=== PATIENT | female | born 1990 | race Caucasian/White ===

== ENCOUNTER 2016-08-17 22:32 | Emergency (ER) | payer MEDICAID ==
[2016-08-17 22:32] VITALS: BMI 34.5
[2016-08-17 23:04] VITALS: BP 123/80; PULSE 97; RESP 16; TEMP 97.9; O2SAT 98
[2016-08-17] MEDS ORDERED: Oxycodone/Acetaminophen 5/325 mg Tab PO STA (23:18)
--- NOTE | 2016-08-17 23:18 | ED PDOC ---
HPI: Abdomen Time Seen by Provider: 08/17/16 23:13 Chief Complaint (Nursing): Abdominal Pain Chief Complaint (Provider): Abdominal Pain History Per: Patient Additional Complaint(s): 25 yo female, no PMH, presents to ED with complaints of LLQ abdominal pain that developed yesterday and vaginal bleeding. Pt is s/p on 08.05.16. Pt . Pt denies any fever or chills, no nausea, vomiting, or diarrhea. Last BM was at 1900 Past Medical History Reviewed: Nursing Documentation, Vital Signs Vital Signs: Last Vital Signs Temp 97.9 F 08/17/16 23:00 Pulse 97 H 08/17/16 23:00 Resp 16 08/17/16 23:00 BP 123/80 08/17/16 23:00 Pulse Ox 98 08/17/16 23:19 - Medical History PMH: No Chronic Diseases - Surgical History Surgical History: Appendectomy - Family History Family History: States: Unknown Family Hx - Living Arrangements Living Arrangements: With Family - Social History Current smoker - smoking cessation education provided: No Alcohol: None Drugs: Denies - Immunization History Hx Tetanus Toxoid Vaccination: No Hx Influenza Vaccination: No Hx Pneumococcal Vaccination: No - Home Medications Home Medications: Ambulatory Orders Medication Instructions Recorded Vit No.126/Iron/FA 1 tab PO DAILY 04/11/16 [Classic Tablet] Ibuprofen [Motrin Tab] 600 mg PO Q6 PRN #30 tab 08/08/16 Docusate [Colace] 100 mg PO DAILY #10 cap 08/18/16 Ibuprofen [Motrin] 600 mg PO Q6 #20 tab 08/18/16 Nitrofurantoin Macrocrystals 100 mg PO BID #10 cap 08/18/16 [Macrobid] oxyCODONE/Acetaminophen [Percocet 1 ea PO Q6 PRN #10 tab 08/18/16 5/325 mg Tab] - Allergies Allergies/Adverse Reactions: Allergies Allergy/AdvReac Type Severity Reaction Status Date / Time morphine Allergy RASH Verified 08/17/16 23:00 Review of Systems ROS Statement: Except As Marked, All Systems Reviewed And Found Negative Gastrointestinal: Positive for: Abdominal Pain Physical Exam - Reviewed Nursing Documentation Reviewed: Yes Vital Signs Reviewed: Yes - Physical Exam Appears: Positive for: Well, Non-toxic, No Acute Distress Head Exam: Positive for: ATRAUMATIC, NORMAL INSPECTION, NORMOCEPHALIC Skin: Positive for: Normal Color, Warm, DRY Eye Exam: Positive for: EOMI, Normal appearance, PERRL ENT: Positive for: Normal ENT Inspection Neck: Positive for: Normal, Painless ROM Cardiovascular/Chest: Positive for: Regular Rate, Rhythm Respiratory: Positive for: CNT, Normal Breath Sounds Gastrointestinal/Abdominal: Positive for: Normal Exam, Bowel Sounds, Soft, Tenderness (LLQ) Back: Positive for: Normal Inspection Extremity: Positive for: Normal ROM Neurologic/Psych: Positive for: Alert, Oriented - Laboratory Results Result Diagrams: 08/18/16 00:30 08/18/16 00:30 - ECG O2 Sat by Pulse Oximetry: 98 Medical Decision Making Medical Decision Making: Pt medicated with Percocet for pain. Diagnostics ordered CBC with WBC 11.5 Hgb 11.2 COMP WNL UA with WBC 14 US resulted: 1. Thickened endometrium with fluid. Clinical correlation is needed. 2. Incidental/non-acute findings are described above. Pt on re-eval rapports pain continues. LLQ tenderness. CT scan ordered IMPRESSION: 1. Retroperitoneal fluid density lesion/collection. DDX: Cyst, hematoma, seroma , abscess, necrotic lymph node, necrotic neoplasm. 2. Abdominal collection. DDX: Hematoma, seroma, abscess. 3. Incidental/non-acute findings are described above. Case discussed with DIRECTOR OF PROVIDER RELATIONS on-call, Dr. Templeton, who advised CT findings at this time are not abnormal s/p . Pt stable for discharge at this time, follow up in office. Disposition - Clinical Impression Clinical Impression: UTI (urinary tract infection), Abdominal pain - Patient ED Disposition Is Patient to be Admitted: No - Disposition Disposition: Routine/Home Disposition Time: 04:58 Condition: GOOD Prescriptions: Docusate [Colace] 100 mg PO DAILY #10 cap Nitrofurantoin Macrocrystals [Macrobid] 100 mg PO BID #10 cap Ibuprofen [Motrin] 600 mg PO Q6 #20 tab oxyCODONE/Acetaminophen [Percocet 5/325 mg Tab] 1 ea PO Q6 PRN #10 tab PRN Reason: Pain, Severe (8-10) Instructions: Urinary Tract Infection in Women (ED), Acute Abdominal Pain (ED) - POA Present On Arrival: None
[2016-08-17] MEDS ORDERED: Oxycodone/Acetaminophen 5/325 mg Tab ONE (23:44)
--- NOTE | 2016-08-18 00:45 | US ---
EXAM: US Pelvis Complete, Transabdominal. CLINICAL HISTORY: 25 years old, female; Pain and signs and symptoms; Menstruation abnormalities; Excessive menstruation; Other: Post preg bleeding; Pelvic pain; Prior surgery; Surgery date: <1 month; Surgery type: ; Additional info: Pain and heavy bleeding S/P c section TECHNIQUE: Real-time transabdominal pelvic ultrasound (complete) with image documentation. COMPARISON: No relevant prior studies available. FINDINGS: Uterus/cervix: Uterus measures 11.4 x 7.6 x 7.5 cm in size. No myometrial mass. Endometrium: 1.9 cm in thickness. Small fluid within canal. No internal vascularity. Right ovary: 3.1 x 3.0 x 3.5 cm in size. No mass. Normal flow. Left ovary: Not visualized. Free fluid: No significant free fluid. Bladder: Unremarkable as visualized. IMPRESSION: 1. Thickened endometrium with fluid. Clinical correlation is needed. 2. Incidental/non-acute findings are described above.
[2016-08-18 00:47] LABS: BASO % 0.4 % (0.0-2.0); EOS # 0.3 K/uL (0.0-0.7); EOS % 2.6 % (0.0-4.0); HEMATOCRIT 35.9 % (34.0-47.0); LYMPH # 3.4 K/uL (1.0-4.3); LYMPH % 29.8 % (20.0-40.0); MEAN CELL VOLUME 89.3 fl (81.0-99.0); MEAN CORPUSCULAR HEMOGLOBIN 27.9 pg (27.0-31.0); MEAN CORPUSCULAR HGB CONC 31.2 g/dL (33.0-37.0); MEAN PLATELET VOLUME 7.8 fl (7.2-11.7); MONO # 0.7 K/uL (0.0-0.8); MONO % 5.9 % (0.0-10.0); NEUT % 61.3 % (50.0-75.0); NRBC % 0.1 % (0.0-0.0); RED CELL DISTRIBUTION WIDTH 15.2 % (11.5-14.5); WHITE BLOOD COUNT 11.5 K/uL (4.8-10.8)
[2016-08-18 00:53] LABS: RBC URINE 7 /hpf (0-3); URINE BILIRUBIN NEGATIVE (NEGATIVE); URINE BLOOD MODERATE (NEGATIVE); URINE COLOR YELLOW (YELLOW); URINE GLUCOSE (UA) NEG (Normal); URINE KETONE NEGATIVE (NEGATIVE); URINE LEUKOCYTE ESTERASE SMALL Leu/uL (Negative); URINE PROTEIN NEGATIVE (NEGATIVE); URINE UROBILINOGEN 0.2-1.0 mg/dL (0.2-1.0); WBC URINE 14 /hpf (0-5)
[2016-08-18 01:02] LABS: ALB/GLOB RATIO 1.1 (1.0-2.1); ALKALINE PHOSPHATASE 103 U/L (38-126); ALT/SGPT 37 U/L (9-52); AST/SGOT 31 U/L (14-36); BILIRUBIN,TOTAL 0.3 mg/dl (0.2-1.3); BLOOD UREA NITROGEN 12 mg/dl (7-17); CALCIUM 9.4 mg/dL (8.4-10.2); CARBON DIOXIDE 26 mmol/L (22-30); CHLORIDE 103 mmol/L (98-107); GFR AFRICAN-AMERICAN > 60; GLUCOSE,RANDOM 82 mg/dL (65-105); POTASSIUM 3.8 MMOL/L (3.6-5.0); SODIUM 145 mmol/l (132-148); TOTAL PROTEIN 7.5 G/DL (6.3-8.2)
[2016-08-18] MEDS ORDERED: Iohexol 240 (50 ml) PO ONE (01:37)
[2016-08-18] MEDS ORDERED: Iohexol 240 (50 ml) ONE (01:49)
[2016-08-18] MEDS ORDERED: Iohexol 300 50 ML ONE (03:22)
[2016-08-18] MEDS ORDERED: Sodium Chloride 0.9% 50 ML IV ONE (03:22)
--- NOTE | 2016-08-18 04:05 | CT ---
EXAM: CT Abdomen and Pelvis With Intravenous Contrast. CLINICAL HISTORY: 25 years old, female; Pain; Abdominal pain; Localized; Left lower quadrant (llq); Prior surgery; Surgery date: 6+ months; Surgery type: Appendectomy. 2 weeks ago; Additional info: Severe llq pain TECHNIQUE: Axial computed tomography images of the abdomen and pelvis with intravenous contrast. This CT exam was performed using one or more of the following dose reduction techniques: automated exposure control, adjustment of the mA and/or kV according to patient size, and/or use of iterative reconstruction technique. Coronal and sagittal reformatted images were created and reviewed. COMPARISON: US - PELVIS ULTRASOUND 08/18/2016 12:03:59 AM FINDINGS: Limitations: Lack of intravenous contrast. Lower thorax: Minimal atelectasis. ABDOMEN: Liver: Unremarkable. No mass. Gallbladder and bile ducts: No calcified stones. No ductal dilation. Pancreas: No ductal dilation. No mass. Spleen: No splenomegaly. Adrenals: No mass. Kidneys and ureters: No renal calculi. Minimal pelvocaliectasis of kidneys. Stomach and bowel: No definite mural thickening. No obstruction. Appendix: Appendectomy. PELVIS: Bladder: Unremarkable. Reproductive: Enlarged uterus. ABDOMEN and PELVIS: Intraperitoneal space: No significant fluid collection. No free air. Retroperitoneal space: 3.5 x 1.7 x 4.2 cm amorphous fluid density lesion/collection along retroperitoneum at level of bifurcation. Bones/joints: No acute fracture. Soft tissues: 1.7 x 4.2 x 1.5 cm fluid collection midline anterior pelvic wall. Mild stranding/minimal air within adjacent fat. Vasculature: Unremarkable. No abdominal aortic aneurysm. Lymph nodes: No pathologically enlarged lymph nodes. IMPRESSION: 1. Retroperitoneal fluid density lesion/collection. DDX: Cyst, hematoma, seroma, abscess, necrotic lymph node, necrotic neoplasm. 2. Abdominal collection. DDX: Hematoma, seroma, abscess. 3. Incidental/non-acute findings are described above.
== END 2016-08-18 05:29 | disposition home or self-care (01) ==
LOC: H.ER 22:32
DX: N39.0 Urinary tract infection, site not specified (principal); R10.32 Left lower quadrant pain

== ENCOUNTER 2017-01-11 13:07 | Inpatient (IN) | payer MEDICAID, OTHER ==
[2017-01-11 13:07] VITALS: BMI 34.5
[2017-01-11] MEDS ORDERED: Sodium Chloride 0.9% 1,000 ML IV STA ×2 (13:40→15:58)
--- NOTE | 2017-01-11 13:50 | ED PDOC ---
HPI: Headache Time Seen by Provider: 01/11/17 13:18 Chief Complaint (Nursing): Headache Chief Complaint (Provider): Headache History Per: Patient History/Exam Limitations: no limitations Onset/Duration Of Symptoms: Days (x 3) Current Symptoms Are (Timing): Still Present Associated Symptoms: Photophobia, Vomiting Additional Complaint(s): Barbara is a 26 y/o female who presents to the ED for complaints of right-sided headache associated with generalized weakness, dizziness, and photophobia, ongoing for 3 days. Patient also had 1 episode of vomiting. Took Tylenol without improvement in symptoms. Denies any associated trauma, focal weakness, numbness, tingling, fever, or neck stiffness. PMD: Unknown Past Medical History Reviewed: Historical Data, Nursing Documentation, Vital Signs Vital Signs: Last Vital Signs Temp 98.2 F 01/11/17 13:15 Pulse 86 01/11/17 13:15 Resp 18 01/11/17 13:15 BP 124/83 01/11/17 13:15 Pulse Ox 100 01/11/17 13:15 - Medical History PMH: No Chronic Diseases - Surgical History Surgical History: Appendectomy - Family History Family History: States: Unknown Family Hx - Social History Current smoker - smoking cessation education provided: No Alcohol: None Drugs: Denies - Immunization History Hx Tetanus Toxoid Vaccination: No Hx Influenza Vaccination: No Hx Pneumococcal Vaccination: No - Home Medications Home Medications: Ambulatory Orders Medication Instructions Recorded Vit No.126/Iron/Folic 1 tab PO DAILY 04/11/16 [Classic Tablet] Ibuprofen [Motrin Tab] 600 mg PO Q6 PRN #30 tab 08/08/16 Docusate [Colace] 100 mg PO DAILY #10 cap 08/18/16 Ibuprofen [Motrin] 600 mg PO Q6 #20 tab 08/18/16 Nitrofurantoin Macrocrystals 100 mg PO BID #10 cap 08/18/16 [Macrobid] oxyCODONE/Acetaminophen [Percocet 1 ea PO Q6 PRN #10 tab 08/18/16 5/325 mg Tab] - Allergies Allergies/Adverse Reactions: Allergies Allergy/AdvReac Type Severity Reaction Status Date / Time morphine Allergy RASH Verified 08/17/16 23:00 Review of Systems ROS Statement: Except As Marked, All Systems Reviewed And Found Negative Constitutional: Positive for: Weakness (generalized). Negative for: Fever Musculoskeletal: Negative for: Neck Pain (and stiffness) Neurological: Positive for: Headache (Right-sided), Dizziness, Other ( Photophobia). Negative for: Weakness (focal), Numbness (and tingling) Physical Exam - Reviewed Nursing Documentation Reviewed: Yes Vital Signs Reviewed: Yes - Physical Exam Appears: Positive for: Non-toxic, In Acute Distress (Moderate painful distress) Head Exam: Positive for: ATRAUMATIC (No tenderness of the temporal area), NORMOCEPHALIC Skin: Positive for: Normal Color, Warm, Dry Eye Exam: Positive for: Normal appearance, EOMI, PERRL, Nystagmus (Horizontal) Neck: Positive for: Normal, Painless ROM (Full ROM), Supple Cardiovascular/Chest: Positive for: Regular Rate, Rhythm. Negative for: Murmur Respiratory: Positive for: Normal Breath Sounds. Negative for: Accessory Muscle Use, Respiratory Distress Gastrointestinal/Abdominal: Positive for: Normal Exam, Soft. Negative for: Tenderness Back: Positive for: Normal Inspection. Negative for: Vertebral Tenderness Extremity: Positive for: Normal ROM. Negative for: Deformity Neurologic/Psych: Positive for: Alert, marketing coordinator II-XII (Intact), Oriented, Cerebellar Tests (FTN intact). Negative for: Motor/Sensory Deficits (no focal defecits), Aphasia, Facial Droop - Laboratory Results Result Diagrams: 01/11/17 13:45 01/11/17 13:45 - ECG O2 Sat by Pulse Oximetry: 100 (RA) Pulse Ox Interpretation: Normal - Progress Re-evaluation Time: 17:44 Condition: Improving,but remains with symptoms - Physician Consult Information Time Consulting Physican Contacted: 17:51 Physician Contacted: Gilbert Kim Outcome Of Conversation: Recommends MgSO4 2 g, Decadron 10 mg, Depakote 500 mg IV and MRI/MRA head and neck without contrast. Medical Decision Making Medical Decision Making: Time: 13:39 Impression: Headache Initial Plan: --CMP --CBC w/ differential --Urine test --Urine dipstick --Urinalysis --POC blood glucose --NS IV 1000 ml at 1000 mls/hr --Benadryl 25 mg IM --Promethazine 25 mg IM --Pending CT Head w/o contrast Time: 15:20 CT Head w/o contrast: FINDINGS: HEMORRHAGE: No intracranial hemorrhage. BRAIN: No mass effect or edema. No atrophy or chronic microvascular ischemic changes. VENTRICLES: Unremarkable. No hydrocephalus. CALVARIUM: Unremarkable. PARANASAL SINUSES: Unremarkable as visualized. No significant inflammatory changes. MASTOID AIR CELLS: Unremarkable as visualized. No inflammatory changes. OTHER FINDINGS: None. IMPRESSION: Normal CT of the Head. Time: 15:32 --Patient given 100 mg Macrobid PO Time: 15:58 --NS IV 1000 ml at 1000 mls/hr Time: 17:38 -- Patient ambulating without difficulty. Awake, alert and oriented x3. No new complaints. Is stable for discharge home. Scribe Attestation: Documented by Shea Castaneda and Marianne Johnson acting as a scribe for Erika Zelaya MD Provider Scribe Attestation: All medical record entries made by the Scribe were at my direction and personally dictated by me. I have reviewed the chart and agree that the record accurately reflects my personal performance of the history, physical exam, medical decision making, and the department course for this patient. I have also personally directed, reviewed, and agree with the discharge instructions and disposition. Disposition - Clinical Impression Clinical Impression: Intractable migraine, Vertigo - Patient ED Disposition Is Patient to be Admitted: Yes - Disposition Disposition Time: 18:00 Condition: STABLE Forms: [employer] (Setswana) - Pt Status Changed To: Hospital Disposition Of: Observation - POA Present On Arrival: None
[2017-01-11] MEDS: DiphenhydrAMINE 50 mg/ml Inj IM STA ×2 (13:53→14:01)
[2017-01-11 13:55] LABS: BASO % 0.5 % (0.0-2.0); EOS # 0.1 K/uL (0.0-0.7); EOS % 1.5 % (0.0-4.0); LYMPH # 2.3 K/uL (1.0-4.3); LYMPH % 37.3 % (20.0-40.0); MEAN CORPUSCULAR HEMOGLOBIN 28.1 pg (27.0-31.0); MEAN CORPUSCULAR HGB CONC 32.8 g/dL (33.0-37.0); MEAN PLATELET VOLUME 9.2 fl (7.2-11.7); MONO # 0.4 K/uL (0.0-0.8); MONO % 7.3 % (0.0-10.0); NEUT # 3.3 K/uL (1.8-7.0); NEUT % 53.4 % (50.0-75.0); NRBC % 0.1 % (0.0-0.0); RBC 4.62 Mil/uL (3.80-5.20); RED CELL DISTRIBUTION WIDTH 15.4 % (11.5-14.5); WHITE BLOOD COUNT 6.1 K/uL (4.8-10.8)
[2017-01-11 14:13] LABS: SQUAMOUS EPITHIAL 5 /hpf (0-5); URINE BACTERIA RARE (<OCC); URINE BILIRUBIN NEGATIVE (NEGATIVE); URINE BLOOD SMALL (NEGATIVE); URINE CLARITY SLIGHTY-CLOUDY (Clear); URINE COLOR YELLOW (YELLOW); URINE GLUCOSE (UA) NEG (Normal); URINE LEUKOCYTE ESTERASE NEG Leu/uL (Negative); URINE NITRATE POSITIVE (NEGATIVE); URINE PROTEIN NEGATIVE (NEGATIVE); URINE UROBILINOGEN 0.2-1.0 mg/dL (0.2-1.0)
[2017-01-11 14:18] LABS: MEAN CELL VOLUME 85.9 fl (81.0-99.0)
[2017-01-11 14:19] LABS: ALB/GLOB RATIO 1.4 (1.0-2.1); ALBUMIN 4.6 g/dL (3.5-5.0); ALT/SGPT 47 U/L (9-52); AST/SGOT 32 U/L (14-36); BLOOD UREA NITROGEN 12 mg/dl (7-17); CALCIUM 9.9 mg/dL (8.4-10.2); GFR AFRICAN-AMERICAN > 60; GFR NON-AFRICAN AMERICAN > 60
--- NOTE | 2017-01-11 15:35 | CT ---
PROCEDURE: CT HEAD WITHOUT CONTRAST. HISTORY: R sided CARMONA COMPARISON: None available. TECHNIQUE: Axial computed tomography images were obtained through the head/brain without intravenous contrast. Radiation dose: Total exam DLP = mGy-cm. This CT exam was performed using one or more of the following dose reduction techniques: Automated exposure control, adjustment of the mA and/or kV according to patient size, and/or use of iterative reconstruction technique. FINDINGS: HEMORRHAGE: No intracranial hemorrhage. BRAIN: No mass effect or edema. No atrophy or chronic microvascular ischemic changes. VENTRICLES: Unremarkable. No hydrocephalus. CALVARIUM: Unremarkable. PARANASAL SINUSES: Unremarkable as visualized. No significant inflammatory changes. MASTOID AIR CELLS: Unremarkable as visualized. No inflammatory changes. OTHER FINDINGS: None. IMPRESSION: Normal CT of the Head.
[2017-01-11] MEDS ORDERED: Dexamethasone 10 MG in Sodium Chloride 0.9% 50 ML IVPB ONE (18:00)
[2017-01-11] MEDS ORDERED: Valproate 500 MG in Sodium Chloride 0.9% 100 ML IVPB ONE (18:00)
[2017-01-11] MEDS ORDERED: Magnesium Sulfate 2 gm/50 ml 2 GM/50 ML BAG IVPB ONE (18:00)
[2017-01-11] MEDS ORDERED: Valproate Sodium 500 mg Inj ONE (18:10)
[2017-01-11] MEDS ORDERED: Magnesium Sulfate 2 gm/50 ml 2 GM/50 ML BAG ONE (18:10)
--- NOTE | 2017-01-11 21:47 | CARD ---
APPROVED REPORT EKG Measurement Heart [id number] <Conclusion> Normal sinus rhythm Normal ECG
[2017-01-11] MEDS: Apap-Butalbital-Caffeine 325-50-40mg Tab PO PRN (23:31)
[2017-01-12] MEDS: Apap-Butalbital-Caffeine 325-50-40mg Tab PO PRN ×2 (05:32→13:35)
[2017-01-12 06:57] LABS: ALB/GLOB RATIO 1.3 (1.0-2.1); ALBUMIN 4.4 g/dL (3.5-5.0); ALT/SGPT 36 U/L (9-52); AST/SGOT 25 U/L (14-36); BLOOD UREA NITROGEN 8 mg/dl (7-17); CALCIUM 9.7 mg/dL (8.4-10.2); GFR AFRICAN-AMERICAN > 60; GFR NON-AFRICAN AMERICAN > 60; HDL CHOLESTEROL 41 MG/DL (30-70)
[2017-01-12 07:03] LABS: BASO % 0.1 % (0.0-2.0); HEMOGLOBIN 13.4 g/dL (12.0-16.0); LYMPH # 1.1 K/uL (1.0-4.3); LYMPH % 20.4 % (20.0-40.0); MEAN CORPUSCULAR HGB CONC 33.7 g/dL (33.0-37.0); MEAN PLATELET VOLUME 10.1 fl (7.2-11.7); MONO # 0.1 K/uL (0.0-0.8); MONO % 1.9 % (0.0-10.0); NEUT # 4.3 K/uL (1.8-7.0); NEUT % 77.6 % (50.0-75.0); NRBC % 0.2 % (0.0-0.0); RBC 4.61 Mil/uL (3.80-5.20); RED CELL DISTRIBUTION WIDTH 15.8 % (11.5-14.5); WHITE BLOOD COUNT 5.6 K/uL (4.8-10.8)
[2017-01-12 07:08] LABS: LDL CHOLESTEROL 108 mg/dL (0-129)
--- NOTE | 2017-01-12 08:12 | RAD ---
HISTORY: Admission COMPARISON: 01/11/2017. FINDINGS: LUNGS: No active pulmonary disease. PLEURA: No significant pleural effusion identified, no pneumothorax apparent. CARDIOVASCULAR: Normal. OSSEOUS STRUCTURES: No significant abnormalities. VISUALIZED UPPER ABDOMEN: Normal. OTHER FINDINGS: None. IMPRESSION: No active disease. No significant interval change compared to the prior examination(s).
[2017-01-12] MEDS: Enoxaparin 40 mg Syringe SC SCH (08:52)
--- NOTE | 2017-01-12 10:21 | HP ---
CHIEF COMPLAINT: Headache. HISTORY OF PRESENT ILLNESS: This is a 26-year-old female with known case of questionable migraine who was having right-sided headache associated with generalized weakness, dizziness, and photophobia, so the patient was brought to emergency room and was admitted for further management. REVIEW OF SYSTEMS: Positive for headache, dizziness, and photophobia. Review of systems otherwise negative for chest pain, shortness of breath, nausea, vomiting, diarrhea, constipation, any new joint or extremity pain. Review of systems of all other organ system is unremarkable. PAST MEDICAL HISTORY: Negative for any chronic illness other than migraine. PAST SURGICAL HISTORY: Remarkable for appendectomy. PERSONAL HISTORY: The patient is currently nonsmoker and nondrinker. No substance abuse. MEDICATIONS: The patient is on vitamin, Motrin, Colace, and Macrobid. ALLERGIES: THE PATIENT IS NOT ALLERGIC TO ANY MEDICATION OTHER THAN MORPHINE. PHYSICAL EXAMINATION: GENERAL: The patient is well-built and well-nourished, overweight, 26-year-old female in no acute distress. VITAL SIGNS: Temperature is 98.1, pulse 64, respirations 20, and blood pressure 99/67. No orthostatic changes. Saturation is 97%. HEENT: Pupils are reacting to light. Normocephalic and atraumatic scalp. NECK: No JVD. No thyromegaly. No lymphadenopathy. No nystagmus. HEART: S1 and S2 normal and regular. No significant murmur, gallop, or rub is noted. LUNGS: Shows good bilateral air exchange. No rales or rhonchi. ABDOMEN: Soft and nontender. No organomegaly noted. Bowel sounds are present. EXTREMITIES: Some edema. No calf swelling. No tenderness. No acute ischemia. CENTRAL NERVOUS SYSTEM: Essentially unchanged. There is no sign of any acute gross, focal, motor or sensory neurological deficit. DIAGNOSTIC DATA: Available diagnostic data reviewed. WBC 5.6, hemoglobin 17.4, hematocrit 39.7, and platelet 247. Sodium 151, potassium 4.2, chloride 107, bicarbonate 23, BUN 8, and creatinine 0.6. SMA-12 is unremarkable. Urinalysis shows positive nitrite. CAT scan of head is unremarkable. Chest x-ray is clear. EKG does not show any acute ST-T changes. IMPRESSION: Questionable atypical migraine, rule out cerebrovascular accident. PLAN: As ordered. Case and plan discussed with the patient. Bora Stern MD [facility] # [id number]
[2017-01-12] MEDS ORDERED: Dexamethasone 10 MG in Sodium Chloride 0.9% 50 ML IVPB ONE (17:00)
--- NOTE | 2017-01-12 18:36 | MRI ---
PROCEDURE: MRI BRAIN WITHOUT CONTRAST HISTORY: Intractable CARMONA COMPARISON: Comparison is made to the previous CT dated 01/11/2017 TECHNIQUE: Multiplanar, multisequence MR images of the brain were obtained without intravenous contrast enhancement. FINDINGS: HEMORRHAGE: None DWI: No evidence of an acute or early subacute infarction. BRAIN PARENCHYMA: No mass effect or edema. No atrophy or chronic microvascular ischemic changes. VENTRICLES: Unremarkable. No hydrocephalus. CRANIUM: Unremarkable. ORBITS: Grossly unremarkable. PARANASAL SINUSES/MASTOIDS: Clear VASCULAR SYSTEM: Skull base flow voids intact. OTHER FINDINGS: None. IMPRESSION: No MRI evidence of acute pathology in the brain. No evidence of mass lesion mass effect or midline shift.
--- NOTE | 2017-01-12 18:41 | MRI ---
PROCEDURE: Magnetic Resonance Angiography Brain HISTORY: Intractable CARMONA/vertigo COMPARISON: None available. TECHNIQUE: 3D time of flight MR angiography of the intracranial arteries was performed. Rotating maximum intensity projection images were generated. FINDINGS: INTERNAL CEREBRAL ARTERIES: Unremarkable. The skull base, petrous, cavernous and supraclinoid segments are bilaterally widely patient. ANTERIOR CEREBRAL ARTERIES: Unremarkable. A1 and A2 segments are widely patent. Smaller distal branches unremarkable, as visualized. MIDDLE CEREBRAL ARTERIES: Unremarkable. M1 and M2 segments are widely patent. Perisylvian branches grossly symmetric. POSTERIOR CIRCULATION: Basilar Artery: Unremarkable. Distal Vertebral Arteries: Unremarkable. Posterior Cerebral Arteries: Unremarkable. Posterior Inferior Cerebellar Arteries: Unremarkable. ANEURYSM/ VASCULAR MALFORMATIONS: None. OTHER FINDINGS: None. IMPRESSION: Unremarkable MR angiography of the brain.
--- NOTE | 2017-01-12 18:44 | MRI ---
PROCEDURE: MR Angiography of the neck without contrast HISTORY: Intractable CARMONA/vertigo COMPARISON: None available. TECHNIQUE: 3D [id number] angiography of the neck was performed. Rotating maximum intensity projection images of the cervical carotid and vertebral arteries were generated. The origins of the common carotid arteries were not visualized, which is a limitation inherent to the non-contrast time of flight technique. FINDINGS: RIGHT CAROTID ARTERIES: Common Carotid Artery: Normal. Carotid Bifurcation: Normal. Internal Carotid Artery:Normal. External Carotid Artery (proximal branches): Normal. LEFT CAROTID ARTERIES: Common Carotid Artery: Normal. Carotid Bifurcation: Normal. Internal Carotid Artery:Normal. External Carotid Artery (proximal branches): Normal. VERTEBRAL ARTERIES: Right Vertebral Artery: Normal. Left Vertebral Artery: Normal. OTHER FINDINGS: None. IMPRESSION: Normal MR Angiography of the neck.
[2017-01-12] MEDS: Magnesium Sulfate 2 gm/50 ml 2 GM/50 ML BAG IVPB ONE ×2 (20:03→20:04)
[2017-01-12] MEDS: Valproate 500 MG in Sodium Chloride 0.9% 100 ML IVPB ONE ×2 (21:07→21:08)
[2017-01-13 08:08] VITALS: RESP 18
[2017-01-13] MEDS: Enoxaparin 40 mg Syringe SC SCH (09:24)
[2017-01-13 16:07] VITALS: BP 91/53; TEMP 98.6
--- NOTE | 2017-01-13 16:07 | CP.PCM.CON ---
History of Present Illness - History of Present Illness History of Present Illness: Mrs. Trotter is a 26-year-old woman with no significant past medical history who presented to the ED with complaints of headache, dizziness and gait instability with feeling as though she is leaning to the right. The patient states that about a week ago she had fallen and hit her head. Since then she has been progressively experiencing these symptoms, but they have been getting worse. Her headache improved with dexamethasone, magnesium and depakote, but she continues to have the vertigo and gait instability. Review of Systems - Review of Systems All systems: reviewed and no additional remarkable complaints except Past Patient History - Infectious Disease Hx of Infectious Diseases: None - Past Medical History & Family History Past Medical History?: Yes - Past Social History Smoking Status: Never Smoked - CARDIAC Hx Cardiac Disorders: No - PULMONARY Hx Respiratory Disorders: No - NEUROLOGICAL Hx Neurological Disorder: No - HEENT Hx HEENT Problems: No - RENAL Hx Chronic Kidney Disease: No - ENDOCRINE/METABOLIC Hx Endocrine Disorders: No - HEMATOLOGICAL/ONCOLOGICAL Hx Blood Disorders: No - INTEGUMENTARY Hx Dermatological Problems: No - MUSCULOSKELETAL/RHEUMATOLOGICAL Hx Musculoskeletal Disorders: No Hx Falls: No - GASTROINTESTINAL Hx Gastrointestinal Disorders: No - GENITOURINARY/GYNECOLOGICAL Hx Genitourinary Disorders: No - PSYCHIATRIC Hx Psychophysiologic Disorder: No - SURGICAL HISTORY Hx Surgeries: Yes Hx Appendectomy: Yes Hx Section: Yes - ANESTHESIA Hx Anesthesia: Yes Hx Anesthesia Reactions: No Meds Home Medications: Home Medication List Medication Instructions Recorded Confirmed Type Diazepam [Valium] 2 mg PO Q12 PRN #14 tablet 01/13/17 Rx Magnesium Oxide 500 mg PO BID #28 tablet 01/13/17 Rx Meclizine [Meclizine*] 25 mg PO Q8 PRN #21 tab 01/13/17 Rx Nitrofurantoin Macrocrystals 100 mg PO Q12 #14 cap 01/13/17 Rx [Macrobid] Allergies/Adverse Reactions: Allergies Allergy/AdvReac Type Severity Reaction Status Date / Time morphine Allergy RASH Verified 08/17/16 23:00 - Medications Medications: Current Medications Enoxaparin Sodium (Lovenox) 40 mg SC DAILY ALIAN PRN Reason: Protocol Last Admin: 01/13/17 09:24 Dose: 40 mg Meclizine HCl (Antivert) 25 mg PO Q8 PRN PRN Reason: Dizziness Last Admin: 01/13/17 09:49 Dose: 25 mg Nitrofurantoin Macrocrystals (Macrobid) 100 mg PO Q12 ALINA Last Admin: 01/13/17 09:23 Dose: 100 mg Ondansetron HCl (Zofran Inj) 4 mg IVP Q8 PRN PRN Reason: Nausea/Vomiting Physical Exam - Constitutional Appears: Well - Head Exam Head Exam: ATRAUMATIC, NORMAL INSPECTION, NORMOCEPHALIC - Eye Exam Eye Exam: EOMI, Normal appearance, PERRL - ENT Exam ENT Exam: Mucous Membranes Moist, Normal Exam - Neck Exam Neck exam: Positive for: Normal Inspection - Respiratory Exam Respiratory Exam: Clear to Auscultation Bilateral, NORMAL BREATHING PATTERN - Cardiovascular Exam Cardiovascular Exam: REGULAR RHYTHM, +S1, +S2 - Rectal Exam Rectal Exam: Deferred - Extremities Exam Extremities exam: Positive for: normal inspection - Back Exam Back exam: NORMAL INSPECTION - Neurological Exam Neurological exam: Abnormal Gait, Alert, CN II-XII Intact, Oriented x3 - Expanded Neurological Exam Expanded Cranial nerves: EOM's Intact: Normal, Facial Sensation: Normal, Nystagmus: Normal Ataxia: No Cerebellar Function: Finger to Nose: Abnormal Right, Heel to [place]: Normal Upper motor neuron: Babinski Sign: Normal Sensory exam: Lower Extremity Light Touch: Normal, Lower Extremity Pin Prick: Normal, Upper Extremity Light Touch: Normal, Upper Extremity Pin Prick: Normal Neuro motor strength exam: Left Upper Extremity: 5, Right Upper Extremity: 5 ( slight fine motor abnormality noted), Left Lower Extremity: 5, Right Lower Extremity: 5 DTR: Achilles Tendon Left: 3+, Achilles Tendon Right: 3+, Bicep Left: 3+, Bicep Right: 3+, Brachioradialis Left: 3+, Brachioradialis Right: 3+, Patellar Left: 3 +, Patellar Right: 3+, Tricep Left: 3+, Tricep Right: 3+ - Psychiatric Exam Psychiatric exam: Normal Affect, Normal Mood - Skin Skin Exam: Dry, Intact, Normal Color, Warm Results - Vital Signs Recent Vital Signs: Last Vital Signs Temp 98 F 01/13/17 08:08 Pulse 94 H 01/13/17 08:08 Resp 18 01/13/17 08:08 BP 119/74 01/13/17 08:08 Pulse Ox 97 01/13/17 08:08 - Labs Result Diagrams: 01/12/17 05:20 01/12/17 05:20 - Imaging and Cardiology MRI - head Status: Image reviewed by me, Report reviewed by me (Normal MRI of the brain and MRA of the head/neck) Assessment & Plan (1) Intractable migraine Assessment and Plan: Likely vestibular migraine. The headache seems to have improved with the Decadron, Depakote and Magnesium sulfate. This may also be a post-concussive syndrome since she hit her head. Continue magnesium oxide 400 mg BID for prophylaxis. May consider topamax if this does not help. Status: Acute (2) Vertigo Assessment and Plan: Differential includes benign positional paroxysmal vertigo, and vestibular migraine. Will start Valium 2 mg Q12 hours for vertigo and will recommend Eply maneuver for treatment as well as tilt table testing. Status: Acute Priority: High
--- NOTE | 2017-01-13 19:35 | CP.PCM.DIS ---
Provider - Provider Date of Admission: 01/13/17 08:15 Attending physician: Bora Stern MD Time Spent in preparation of Discharge (in minutes): 30 Diagnosis - Discharge Diagnosis (1) Intractable migraine Status: Acute Comment: improved, magnesium oxide 400 mg BID for prophylaxis as per Neurology recommendations. F/U with Neurology as outpatient for further eval and treatment (2) Vertigo Status: Acute Priority: High Comment: Valium 2 mg Q12 hours for vertigo. Eply maneuver for treatment as well as tilt table testing as per Neurology recommendations. Patient was advised to avoid driving or operating machinery. F/U with PMD to return to work and f/u with neurology Hospital Course - Lab Results Lab Results: Most Recent Lab Values WBC 5.6 K/uL (4.8-10.8) 01/12/17 05:20 RBC 4.61 Mil/uL (3.80-5.20) 01/12/17 05:20 Hgb 13.4 g/dL (12.0-16.0) 01/12/17 05:20 Hct 39.7 % (34.0-47.0) 01/12/17 05:20 MCV 86.0 fl (81.0-99.0) 01/12/17 05:20 MCH 29.0 pg (27.0-31.0) 01/12/17 05:20 MCHC 33.7 g/dL (33.0-37.0) 01/12/17 05:20 RDW 15.8 % (11.5-14.5) H 01/12/17 05:20 Plt Count 247 K/uL (130-400) 01/12/17 05:20 MPV 10.1 fl (7.2-11.7) 01/12/17 05:20 Neut % (Auto) 77.6 % (50.0-75.0) H 01/12/17 05:20 Lymph % (Auto) 20.4 % (20.0-40.0) 01/12/17 05:20 Garden % (Auto) 1.9 % (0.0-10.0) 01/12/17 05:20 Eos % (Auto) 0.0 % (0.0-4.0) 01/12/17 05:20 Baso % (Auto) 0.1 % (0.0-2.0) 01/12/17 05:20 Neut # 4.3 K/uL (1.8-7.0) 01/12/17 05:20 Lymph # 1.1 K/uL (1.0-4.3) 01/12/17 05:20 Garden # 0.1 K/uL (0.0-0.8) 01/12/17 05:20 Eos # 0.0 K/uL (0.0-0.7) 01/12/17 05:20 Baso # 0.0 K/uL (0.0-0.2) 01/12/17 05:20 Sodium 141 mmol/l (132-148) 01/12/17 05:20 Potassium 4.2 MMOL/L (3.6-5.0) 01/12/17 05:20 Chloride 107 mmol/L (98-107) 01/12/17 05:20 Carbon Dioxide 23 mmol/L (22-30) 01/12/17 05:20 Anion Gap 16 (10-20) 01/12/17 05:20 BUN 8 mg/dl (7-17) 01/12/17 05:20 Creatinine 0.6 mg/dL (0.7-1.2) L 01/12/17 05:20 Est GFR ( Amer) > 60 01/12/17 05:20 Est GFR (Non-Af Amer) > 60 01/12/17 05:20 POC Glucose (mg/dL) 90 mg/dL (65-110) 01/11/17 13:53 Random Glucose 126 mg/dL (65-105) H 01/12/17 05:20 Calcium 9.7 mg/dL (8.4-10.2) 01/12/17 05:20 Total Bilirubin 1.4 mg/dl (0.2-1.3) H 01/12/17 05:20 AST 25 U/L (14-36) 01/12/17 05:20 ALT 36 U/L (9-52) 01/12/17 05:20 Alkaline Phosphatase 63 U/L (38-126) 01/12/17 05:20 Total Protein 7.7 G/DL (6.3-8.2) 01/12/17 05:20 Albumin 4.4 g/dL (3.5-5.0) 01/12/17 05:20 Globulin 3.3 gm/dL (2.2-3.9) 01/12/17 05:20 Albumin/Globulin Ratio 1.3 (1.0-2.1) 01/12/17 05:20 Triglycerides 76 mg/DL (0-149) 01/12/17 05:20 Cholesterol 169 mg/dL (0-199) 01/12/17 05:20 LDL Cholesterol Direct 108 mg/dL (0-129) 01/12/17 05:20 HDL Cholesterol 41 MG/DL (30-70) 01/12/17 05:20 Vitamin B12 743 pg/mL (239-931) 01/12/17 05:20 TSH 3rd Generation 0.18 mIU/ML (0.46-4.68) L 01/12/17 08:02 Urine Color Yellow (YELLOW) 01/11/17 13:45 Urine Clarity Slighty-cloudy (Clear) 01/11/17 13:45 Urine pH 6.0 (5.0-8.0) 01/11/17 13:45 Ur Specific Ross 1.019 (1.003-1.030) 01/11/17 13:45 Urine Protein Negative mg/dL (NEGATIVE) 01/11/17 13:45 Urine Glucose (UA) Neg mg/dL (Normal) 01/11/17 13:45 Urine Ketones Negative mg/dL (NEGATIVE) 01/11/17 13:45 Urine Blood Small (NEGATIVE) 01/11/17 13:45 Urine Nitrate Positive (NEGATIVE) H 01/11/17 13:45 Urine Bilirubin Negative (NEGATIVE) 01/11/17 13:45 Urine Urobilinogen 0.2-1.0 mg/dL (0.2-1.0) 01/11/17 13:45 Ur Leukocyte Esterase Neg Jamar/uL (Negative) 01/11/17 13:45 Urine RBC (Auto) 6 /hpf (0-3) H 01/11/17 13:45 Urine Microscopic WBC 3 /hpf (0-5) 01/11/17 13:45 Ur Squamous Epith Cells 5 /hpf (0-5) 01/11/17 13:45 Urine Bacteria Rare (<OCC) 01/11/17 13:45 Discharge Exam - Head Exam Head Exam: ATRAUMATIC, NORMAL INSPECTION, NORMOCEPHALIC - ENT Exam ENT Exam: Mucous Membranes Moist - Respiratory Exam Respiratory Exam: Clear to PA & Lateral, NORMAL BREATHING PATTERN - Cardiovascular Exam Cardiovascular Exam: REGULAR RHYTHM, +S1, +S2 - GI/Abdominal Exam GI & Abdominal Exam: Normal Bowel Sounds, Soft. absent: Distended, Guarding, Tenderness - Extremities Exam Extremities exam: normal inspection Additional comments: no calf tenderness, no edema - Neurological Exam Neurological exam: Alert, Oriented x3 - Psychiatric Exam Psychiatric exam: Normal Affect, Normal Mood - Skin Skin Exam: Dry, Intact, Normal Color Discharge Plan - Discharge Medications Prescriptions: Diazepam [Valium] 2 mg PO Q12 PRN #14 tablet PRN Reason: Anxiety Magnesium Oxide 500 mg PO BID #28 tablet Meclizine [Meclizine*] 25 mg PO Q8 PRN #21 tab PRN Reason: Dizziness Nitrofurantoin Macrocrystals [Macrobid] 100 mg PO Q12 #14 cap - Follow Up Plan Condition: STABLE Disposition: HOME/ ROUTINE Instructions: Migraine Headache (DC) Additional Instructions: mantegan elevada la frances 45-60 grados y siddharth luciana con neurologo. Patient admitted on 01/11/2017 and discharged to home on 01/13/2017. Not cleared for work until patient sees primary care doctor. Referrals: [facility] [place] [Outside] Gilbert Kim MD [Medical Doctor] -
[2017-01-13 22:48] VITALS: PULSE 49; O2SAT 99
== END 2017-01-13 18:45 | disposition home or self-care (01) | DRG 103 ==
LOC: H.ER 13:07 → H.ERHOLD 17:56 → H.MEDSURG1 21:19 → OBSVTOIN 01-13 08:15
PROVIDERS: ADMIT Internal Medicine; ATTEND Internal Medicine
DX: G43.919 Migraine, unspecified, intractable, without status migrainosus (principal); R42 Dizziness and giddiness

== ENCOUNTER 2017-04-12 18:43 | Emergency (ER) | payer OTHER ==
[2017-04-12 18:43] VITALS: BMI 34.5
[2017-04-12 19:00] VITALS: BP 118/70; PULSE 90; RESP 18; TEMP 98.5; O2SAT 99
[2017-04-12] MEDS ORDERED: Sodium Chloride 0.9% 1,000 ML IV STA (19:40)
[2017-04-12 19:59] LABS: BASO % 0.2 % (0.0-2.0); EOS # 0.1 K/uL (0.0-0.7); HEMATOCRIT 36.7 % (34.0-47.0); LYMPH # 3.3 K/uL (1.0-4.3); LYMPH % 27.7 % (20.0-40.0); MEAN CELL VOLUME 86.6 fl (81.0-99.0); MEAN CORPUSCULAR HEMOGLOBIN 29.6 pg (27.0-31.0); MEAN CORPUSCULAR HGB CONC 34.1 g/dL (33.0-37.0); MEAN PLATELET VOLUME 9.3 fl (7.2-11.7); MONO # 0.7 K/uL (0.0-0.8); MONO % 5.9 % (0.0-10.0); NEUT # 7.7 K/uL (1.8-7.0); NEUT % 65.2 % (50.0-75.0); NRBC % 0.1 % (0.0-0.0); RED CELL DISTRIBUTION WIDTH 14.3 % (11.5-14.5); WHITE BLOOD COUNT 11.8 K/uL (4.8-10.8)
[2017-04-12 20:01] LABS: RBC URINE 6 /hpf (0-3); URINE BILIRUBIN NEGATIVE (NEGATIVE); URINE BLOOD MODERATE (NEGATIVE); URINE COLOR YELLOW (YELLOW); URINE GLUCOSE (UA) NEG (Normal); URINE KETONE NEGATIVE (NEGATIVE); URINE LEUKOCYTE ESTERASE SMALL Leu/uL (Negative); URINE PROTEIN NEGATIVE (NEGATIVE); URINE UROBILINOGEN 0.2-1.0 mg/dL (0.2-1.0); WBC URINE 11 /hpf (0-5)
--- NOTE | 2017-04-12 20:21 | ED PDOC ---
HPI: Female Pain Time Seen by Provider: 04/12/17 19:18 Chief Complaint (Nursing): Female Genitourinary Chief Complaint (Provider): Abdominal pain, diarrhea, and vaginal bleeding History Per: Patient Onset/Duration Of Symptoms: Days (2 weeks), Other (Progressively worsening) Current Symptoms Are (Timing): Still Present Pain Scale Rating Of: 8 Quality Of Discomfort: Cramping Associated Symptoms: Diarrhea. denies: Fever, Nausea, Vomiting, Chest Pain Additional Complaint(s): Patient is a 26 y/o female (estimated gestational period 2 and a half weeks) with a past history of kidney stones, a section, and an appendectomy, who presents to the ED complaining of left lower quadrant abdominal pain for 2 weeks with associated loose, watery diarrhea. Patient describes the pain as cramping and claims it has been getting progressively worse since onset. She reports she was seen at this ED for pain and diarrhea about 10 days ago and discharged. Patient also reports vaginal bleeding when she wipes after urinating, but denies any associated clots, nauseam vomiting, change in appetite, fever, cough, shortness of breath, or chest pain. She adds that she took Tylenol at home with no relief. PCP: Provider TBD Abnormal Vaginal Bleeding: Yes : 5 Para: 3 Past Medical History Reviewed: Historical Data, Nursing Documentation, Vital Signs Vital Signs: Last Vital Signs Temp 98.5 F 04/12/17 18:56 Pulse 90 04/12/17 18:56 Resp 18 04/12/17 18:56 BP 118/70 04/12/17 18:56 Pulse Ox 99 04/12/17 18:56 - Medical History PMH: Kidney Stones Denies: Chronic Kidney Disease - Surgical History Surgical History: Appendectomy, - Family History Family History: States: Unknown Family Hx - Social History Current smoker - smoking cessation education provided: No Alcohol: None Drugs: Denies - Immunization History Hx Tetanus Toxoid Vaccination: No Hx Influenza Vaccination: No Hx Pneumococcal Vaccination: No - Home Medications Home Medications: Ambulatory Orders Medication Instructions Recorded Diazepam [Valium] 2 mg PO Q12 PRN #14 tablet 01/13/17 Magnesium Oxide 500 mg PO BID #28 tablet 01/13/17 Meclizine [Meclizine*] 25 mg PO Q8 PRN #21 tab 08/15/17 Nitrofurantoin Macrocrystals 100 mg PO Q12 #14 cap 01/13/17 [Macrobid] Nitrofurantoin Macrocrystals 100 mg PO BID #14 tab 04/07/17 [Macrobid] Dicyclomine [Bentyl] 20 mg PO Q12 PRN #20 tab 04/12/17 Nitrofurantoin Macrocrystals 100 mg PO BID #14 cap 04/12/17 [Macrobid] - Allergies Allergies/Adverse Reactions: Allergies Allergy/AdvReac Type Severity Reaction Status Date / Time morphine Allergy RASH Verified 04/04/17 14:40 Review of Systems ROS Statement: Except As Marked, All Systems Reviewed And Found Negative Constitutional: Positive for: Other (change in appetite). Negative for: Fever Cardiovascular: Negative for: Chest Pain Respiratory: Negative for: Cough, Shortness of Breath Gastrointestinal: Positive for: Abdominal Pain (left lower quadrant), Diarrhea. Negative for: Nausea, Vomiting Genitourinary Female: Positive for: Vaginal Bleeding Physical Exam - Reviewed Nursing Documentation Reviewed: Yes Vital Signs Reviewed: Yes - Physical Exam Appears: Positive for: No Acute Distress, Uncomfortable Head Exam: Positive for: ATRAUMATIC, NORMOCEPHALIC Skin: Positive for: Normal Color, Warm, Dry Eye Exam: Positive for: Normal appearance, EOMI, PERRL Neck: Positive for: Normal, Painless ROM, Supple Cardiovascular/Chest: Positive for: Regular Rate, Rhythm. Negative for: Murmur Respiratory: Positive for: Normal Breath Sounds. Negative for: Respiratory Distress Gastrointestinal/Abdominal: Positive for: Soft, Tenderness (Left lower quadrant) Back: Positive for: Normal Inspection. Negative for: L CVA Tenderness, R CVA Tenderness, Vertebral Tenderness Extremity: Positive for: Normal ROM. Negative for: Pedal Edema, Deformity Neurologic/Psych: Positive for: Alert, Oriented (x3). Negative for: Motor/ Sensory Deficits - Laboratory Results Result Diagrams: 04/12/17 19:54 - ECG O2 Sat by Pulse Oximetry: 99 (RA) Pulse Ox Interpretation: Normal Medical Decision Making Medical Decision Makin:30 Initial Impression: 26 y/o female with abdominal pain in setting of early Initial Plan: --Labs --Urine --ED Urine dipstick --Bentyl 20 mg PO --Sodium Chloride 0.9% 1,000 mls/hr --Culture Urine --Urinalysis --US Pelvis/Transvag 20:13 --US Abdomen Limited 2211 US ABD LIMITED FINDINGS: Liver: Unremarkable echogenicity and size measuring 15.4 cm in longitudinal dimension.. No intrahepatic bile duct dilation. Gallbladder: The gallbladder is contracted, without gallbladder stones. Common bile duct: No stones. No dilation, measuring 3.7 mm. Pancreas: Visualization of the pancreas is limited by overlying bowel gas. Right kidney: Unremarkable in echogenicity and size measuring 12.0 x 5.9 x 5.2 cm No obstructing stones. No solid mass. No hydronephrosis. IMPRESSION: Unremarkable sonographic evaluation of the right upper quadrant, as detailed above. Limited evaluation of the pancreas, secondary to overlying bowel gas. Thank you for allowing us to participate in the care of your patient. 2311 US , TRANSABDOMINAL TRANSVAGINAL FINDINGS: Gestation: A single intrauterine gestation is identified with a crown-rump length measuring 3.6 mm, corresponding to an approximate gestational age of 6 weeks and 0 days. A yolk sac is visualized. cardiac activity is identified at a rate of 114 beats per minute. The mean gestational sac size measures 13.6 mm, corresponding to approximate gestational age of 5 weeks and 4 days. Small implantation hemorrhage is detected measuring 9.9 mm in greatest dimension. Placenta/amniotic fluid: Cannot be adequately evaluated due to the early gestational age. Uterus/cervix: Cervix measures 3.7 cm, and is closed. Ovaries: The left ovary is unremarkable in echogenicity and size measuring 2.6 x 2.1 x 1.5 cm. The right ovary measures 3.3 x 3.8 x 2.3 cm. Within the right ovary is a complex cystic focus measuring 2.5 x 2.3 x 2.0 cm, likely a corpus luteal cyst. Otherwise normal flow is detected bilaterally. Free fluid: No free fluid. IMPRESSION: Single intrauterine gestation with an approximate gestational age of 6 weeks and 0 days. cardiac activity is identified. Small subcentimeter implantation hemorrhage. The cervix is closed. Patient reports improvement in symptoms. Labs reviewed: no clinically significant abnormalities. Urine is indicative of possible UTI. Urine culture has been sent. Patient reports improvement is status post Bentyl. Patient is stable for discharge. Dx: abdominal pain and , gastroenteritis, UTI Condition: improved Patient states she will follow up at [facility], where she is a patient. Scribe Attestation: Documented by Mirian Sharpe and Berenice Baron, acting as a scribe for Lonnie Gee MD Provider Scribe Attestation: All medical record entries made by the Scribe were at my direction and personally dictated by me. I have reviewed the chart and agree that the record accurately reflects my personal performance of the history, physical exam, medical decision making, and the department course for this patient. I have also personally directed, reviewed, and agree with the discharge instructions and disposition. Disposition - Clinical Impression Clinical Impression: Gastroenteritis, Abdominal pain in , UTI (urinary tract infection), Urinary tract infection during - Disposition Disposition: Routine/Home Disposition Time: 23:00 Condition: IMPROVED Prescriptions: Dicyclomine [Bentyl] 20 mg PO Q12 PRN #20 tab PRN Reason: abdominal pain/diarrhea Nitrofurantoin Macrocrystals [Macrobid] 100 mg PO BID #14 cap Instructions: Gastroenteritis (ED), Abdominal Pain in (ED) Forms: [employer] ([place]) Print Language: LUX[place]GISH - POA Present On Arrival: None
--- NOTE | 2017-04-12 23:01 | US ---
EXAM: US Abdomen Limited, Right Upper Quadrant CLINICAL HISTORY: 26 years old, female; Pain; Abdominal pain; Epigastric; ; Additional info: Llq pain TECHNIQUE: Real-time ultrasound of the right upper quadrant with image documentation. COMPARISON: None FINDINGS: Liver: Unremarkable echogenicity and size measuring 15.4 cm in longitudinal dimension.. No intrahepatic bile duct dilation. Gallbladder: The gallbladder is contracted, without gallbladder stones. Common bile duct: No stones. No dilation, measuring 3.7 mm. Pancreas: Visualization of the pancreas is limited by overlying bowel gas. Right kidney: Unremarkable in echogenicity and size measuring 12.0 x 5.9 x 5.2 cm No obstructing stones. No solid mass. No hydronephrosis. IMPRESSION: Unremarkable sonographic evaluation of the right upper quadrant, as detailed above. Limited evaluation of the pancreas, secondary to overlying bowel gas.
--- NOTE | 2017-04-12 23:22 | US ---
EXAM: US , Transabdominal and Transvaginal CLINICAL HISTORY: 26 years old, female; Pain; complicated by abdominal or pelvic pain; Lower; First trimester; Gestational age or lmp: 03/01/2017; ; Additional info: Vag bld in preg TECHNIQUE: Real-time transabdominal and transvaginal obstetrical ultrasound of the maternal pelvis and a first trimester with image documentation. Transvaginal imaging was used for better evaluation of the fetus and adnexa. COMPARISON: US - OB TRANSVAGINAL 2017-04-04 16:32 FINDINGS: Gestation: A single intrauterine gestation is identified with a crown-rump length measuring 3.6 mm, corresponding to an approximate gestational age of 6 weeks and 0 days. A yolk sac is visualized. cardiac activity is identified at a rate of 114 beats per minute. The mean gestational sac size measures 13.6 mm, corresponding to approximate gestational age of 5 weeks and 4 days. Small implantation hemorrhage is detected measuring 9.9 mm in greatest dimension. Placenta/amniotic fluid: Cannot be adequately evaluated due to the early gestational age. Uterus/cervix: Cervix measures 3.7 cm, and is closed. Ovaries: The left ovary is unremarkable in echogenicity and size measuring 2.6 x 2.1 x 1.5 cm. The right ovary measures 3.3 x 3.8 x 2.3 cm. Within the right ovary is a complex cystic focus measuring 2.5 x 2.3 x 2.0 cm, likely a corpus luteal cyst. Otherwise normal flow is detected bilaterally. Free fluid: No free fluid. IMPRESSION: Single intrauterine gestation with an approximate gestational age of 6 weeks and 0 days. cardiac activity is identified. Small subcentimeter implantation hemorrhage. The cervix is closed.
== END 2017-04-13 00:15 | disposition home or self-care (01) ==
LOC: H.ER 18:43
DX: O23.41 Unspecified infection of urinary tract in pregnancy, first trimester (principal); Z3A.01 Less than 8 weeks gestation of pregnancy; Z87.442 Personal history of urinary calculi; K52.9 Noninfective gastroenteritis and colitis, unspecified; N83.201 Unspecified ovarian cyst, right side
CPT/HCPCS: 76705; 76815; 76817; 81003; 84702; 85025; 87086; 99283; J7040

== ENCOUNTER 2017-07-01 09:41 | Emergency (ER) | payer OTHER ==
[2017-07-01 09:41] VITALS: BMI 34.5
[2017-07-01 10:24] VITALS: BP 120/69; PULSE 69; RESP 18; TEMP 97.3; O2SAT 99
--- NOTE | 2017-07-01 11:43 | ED PDOC ---
HPI: General Adult Time Seen by Provider: 07/01/17 10:42 Chief Complaint (Nursing): GI Problem History Per: Patient Additional Complaint(s): Pt. c/o rectal pain x 3 days. States she has hemorrhoids and she used a "cream" (pt does not remember name) but depleted her supply. States that hemorrhoid has decreased in size but is still present. Reports minimal bleeding and is present only when she wipes. Denies abdominal pain, weakness, fever. Past Medical History Reviewed: Historical Data, Nursing Documentation, Vital Signs Vital Signs: Last Vital Signs Temp 97.3 F L 07/01/17 10:20 Pulse 69 07/01/17 10:20 Resp 18 07/01/17 10:20 BP 120/69 07/01/17 10:20 Pulse Ox 99 07/01/17 11:44 - Medical History PMH: Kidney Stones Denies: Chronic Kidney Disease - Surgical History Surgical History: Appendectomy, - Family History Family History: States: Unknown Family Hx - Immunization History Hx Tetanus Toxoid Vaccination: No Hx Influenza Vaccination: No Hx Pneumococcal Vaccination: No - Home Medications Home Medications: Ambulatory Orders Medication Instructions Recorded Diazepam [Valium] 2 mg PO Q12 PRN #14 tablet 01/13/17 Magnesium Oxide 500 mg PO BID #28 tablet 01/13/17 Meclizine [Meclizine*] 25 mg PO Q8 PRN #21 tab 01/13/17 Nitrofurantoin Macrocrystals 100 mg PO Q12 #14 cap 01/13/17 [Macrobid] Nitrofurantoin Macrocrystals 100 mg PO BID #14 tab 04/07/17 [Macrobid] Dicyclomine [Bentyl] 20 mg PO Q12 PRN #20 tab 04/12/17 Nitrofurantoin Macrocrystals 100 mg PO BID #14 cap 04/12/17 [Macrobid] Hydrocortisone 2.5% (Rectal) 1 applic [place] BID PRN #1 tube 07/01/17 [Anusol-HC] Naproxen [Naprosyn] 500 mg PO BID PRN #30 tab 07/01/17 - Allergies Allergies/Adverse Reactions: Allergies Allergy/AdvReac Type Severity Reaction Status Date / Time morphine Allergy RASH Verified 04/04/17 14:40 Review of Systems ROS Statement: Except As Marked, All Systems Reviewed And Found Negative Physical Exam - Physical Exam Appears: Positive for: Well, Non-toxic, No Acute Distress Skin: Positive for: Normal Color, Warm. Negative for: Rash Rectal: Positive for: Hemorrhoids (pea sized hemorrhoid present without bleeding ) Neurologic/Psych: Positive for: Alert, Oriented - ECG O2 Sat by Pulse Oximetry: 99 Disposition - Clinical Impression Clinical Impression: Hemorrhoid - Patient ED Disposition Is Patient to be Admitted: No - Disposition Referrals: [facility] [Outside] Disposition: Routine/Home Disposition Time: 11:41 Condition: STABLE Prescriptions: Hydrocortisone 2.5% (Rectal) [Anusol-HC] 1 applic FL BID PRN #1 tube PRN Reason: Hemorrhoids Naproxen [Naprosyn] 500 mg PO BID PRN #30 tab PRN Reason: Pain Instructions: Hemorrhoids (ED) Forms: [facility] (Lao)
== END 2017-07-01 11:53 | disposition home or self-care (01) ==
LOC: H.ER 09:41
DX: K64.9 Unspecified hemorrhoids (principal); Z87.442 Personal history of urinary calculi

== ENCOUNTER 2017-07-22 17:50 | Emergency (ER) | payer OTHER ==
[2017-07-22 17:50] VITALS: BMI 34.5
[2017-07-22 19:41] VITALS: BP 141/87; PULSE 74; RESP 16; TEMP 98.5; O2SAT 100
--- NOTE | 2017-07-22 21:55 | ED PDOC ---
HPI: Allergic Reaction Time Seen by Provider: 07/22/17 21:19 Chief Complaint (Nursing): Allergic Reaction Chief Complaint (Provider): Allergic reaction History Per: Patient History/Exam Limitations: no limitations Onset/Duration Of Symptoms: Hrs Current Symptoms Are (Timing): Still Present Possible Cause: Unknown Associated Symptoms: Skin Rash, Itching, Redness Home/EMS Treatment: None Additional Complaint(s): 26yo female, presents to ER for evaluation of an itchy, red rash to her body since this morning. She denies any throat swelling, shortness of breath, lip swelling. No other complaints. Past Medical History Reviewed: Historical Data, Nursing Documentation, Vital Signs Vital Signs: Last Vital Signs Temp 98.5 F 07/22/17 19:38 Pulse 74 07/22/17 19:38 Resp 16 07/22/17 19:38 BP 141/87 07/22/17 19:38 Pulse Ox 100 07/22/17 19:38 - Medical History PMH: Kidney Stones Denies: Chronic Kidney Disease - Surgical History Surgical History: Appendectomy, - Family History Family History: States: Unknown Family Hx - Immunization History Hx Tetanus Toxoid Vaccination: No Hx Influenza Vaccination: No Hx Pneumococcal Vaccination: No - Home Medications Home Medications: Ambulatory Orders Medication Instructions Recorded Diazepam [Valium] 2 mg PO Q12 PRN #14 tablet 01/13/17 Magnesium Oxide 500 mg PO BID #28 tablet 01/13/17 Meclizine [Meclizine*] 25 mg PO Q8 PRN #21 tab 01/13/17 Nitrofurantoin Macrocrystals 100 mg PO Q12 #14 cap 01/13/17 [Macrobid] Nitrofurantoin Macrocrystals 100 mg PO BID #14 tab 04/07/17 [Macrobid] Dicyclomine [Bentyl] 20 mg PO Q12 PRN #20 tab 04/12/17 Nitrofurantoin Macrocrystals 100 mg PO BID #14 cap 04/12/17 [Macrobid] Hydrocortisone 2.5% (Rectal) 1 applic [place] BID PRN #1 tube 07/01/17 [Anusol-HC] Naproxen [Naprosyn] 500 mg PO BID PRN #30 tab 07/01/17 DiphenhydrAMINE [Benadryl] 50 mg PO Q6H PRN #20 cap 07/22/17 predniSONE [predniSONE Tab] 20 mg PO DAILY #12 tab 07/22/17 - Allergies Allergies/Adverse Reactions: Allergies Allergy/AdvReac Type Severity Reaction Status Date / Time morphine Allergy RASH Verified 07/22/17 19:37 Review of Systems ROS Statement: Except As Marked, All Systems Reviewed And Found Negative ENT: Negative for: Mouth Swelling, Throat Swelling Respiratory: Negative for: Shortness of Breath Skin: Positive for: Rash Physical Exam - Reviewed Nursing Documentation Reviewed: Yes Vital Signs Reviewed: Yes - Physical Exam Appears: Positive for: Non-toxic, No Acute Distress Head Exam: Positive for: ATRAUMATIC, NORMAL INSPECTION, NORMOCEPHALIC Skin: Positive for: Rash (positive areas with erythema and blanching to arms, abdomen and thighs.) Eye Exam: Positive for: Normal appearance ENT: Positive for: Normal ENT Inspection, Other (no angioedema) Neck: Positive for: Supple Cardiovascular/Chest: Positive for: Regular Rate, Rhythm Respiratory: Positive for: Normal Breath Sounds. Negative for: Wheezing, Respiratory Distress Neurologic/Psych: Positive for: Alert, Oriented. Negative for: Motor/Sensory Deficits - ECG O2 Sat by Pulse Oximetry: 100 (RA) Pulse Ox Interpretation: Normal - Progress ED Course And Treament: Impression: Allergic reaction Plan: -- Solumedrol 125 mg IM Since patient will be driving home, she will be given prescription for Benadryl and prednisone to take at home. Patient given instructions regarding digital media strategist follow up. Stable for discharge home. Scribe Attestation: Documented by Marianne Johnson acting as a scribe for AARON Cutler Provider Attestation: All medical record entries made by the Scribe were at my direction and personally dictated by me. I have reviewed the chart and agree that the record accurately reflects my personal performance of the history, physical exam, medical decision making, and the department course for this patient. I have also personally directed, reviewed, and agree with the discharge instructions and disposition. Disposition - Clinical Impression Clinical Impression: Allergic reaction - Disposition Disposition: Routine/Home Disposition Time: 21:55 Condition: GOOD Prescriptions: DiphenhydrAMINE [Benadryl] 50 mg PO Q6H PRN #20 cap PRN Reason: Itching / Pruritus predniSONE [predniSONE Tab] 20 mg PO DAILY #12 tab Instructions: Skin Rash Forms: [facility] ([place])
== END 2017-07-22 22:20 | disposition home or self-care (01) ==
LOC: H.ER 17:50
DX: T78.40XA Allergy, unspecified, initial encounter (principal); Z87.442 Personal history of urinary calculi
CPT/HCPCS: 81025; 96372; 99282; J2930

== ENCOUNTER 2017-08-14 19:28 | Emergency (ER) | payer OTHER, SELFPAY ==
[2017-08-14 19:29] VITALS: BMI 34.5
[2017-08-14 19:57] VITALS: BP 123/87; PULSE 91; RESP 15; TEMP 97.9; O2SAT 100
--- NOTE | 2017-08-14 21:13 | ED PDOC ---
HPI: General Adult Time Seen by Provider: 08/14/17 20:01 Chief Complaint (Nursing): ENT Problem Chief Complaint (Provider): ENT Problem History Per: Patient History/Exam Limitations: no limitations Onset/Duration Of Symptoms: Days (x 1 week) Current Symptoms Are (Timing): Still Present Additional Complaint(s): 26 year old female presents to the ED complaining of pain across TMJ, onset 1 week ago. She reports pain is worse today. Patient states over the counter 2 tabs of Motrin with minimal improvement. Pain with opening mouth and palpation. Otherwise: (-) headache, (-) URI symptoms, (-) ear pain, (-) fever, (-) trauma, (-) dental pain, (-) sore throat. PMD: none provided Past Medical History Reviewed: Historical Data, Nursing Documentation, Vital Signs Vital Signs: Last Vital Signs Temp 97.9 F 08/14/17 19:54 Pulse 91 H 08/14/17 19:54 Resp 15 08/14/17 19:54 BP 123/87 08/14/17 19:54 Pulse Ox 100 08/14/17 21:21 - Medical History PMH: Kidney Stones Denies: Chronic Kidney Disease - Surgical History Surgical History: Appendectomy, - Family History Family History: States: Unknown Family Hx - Immunization History Hx Tetanus Toxoid Vaccination: No Hx Influenza Vaccination: No Hx Pneumococcal Vaccination: No - Home Medications Home Medications: Ambulatory Orders Medication Instructions Recorded Diazepam [Valium] 2 mg PO Q12 PRN #14 tablet 01/13/17 Magnesium Oxide 500 mg PO BID #28 tablet 01/13/17 Meclizine [Meclizine*] 25 mg PO Q8 PRN #21 tab 01/13/17 Nitrofurantoin Macrocrystals 100 mg PO Q12 #14 cap 01/13/17 [Macrobid] Nitrofurantoin Macrocrystals 100 mg PO BID #14 tab 04/07/17 [Macrobid] Dicyclomine [Bentyl] 20 mg PO Q12 PRN #20 tab 04/12/17 Nitrofurantoin Macrocrystals 100 mg PO BID #14 cap 04/12/17 [Macrobid] Hydrocortisone 2.5% (Rectal) 1 applic [place] BID PRN #1 tube 07/01/17 [Anusol-HC] Naproxen [Naprosyn] 500 mg PO BID PRN #30 tab 07/01/17 DiphenhydrAMINE [Benadryl] 50 mg PO Q6H PRN #20 cap 07/22/17 predniSONE [predniSONE Tab] 20 mg PO DAILY #12 tab 07/22/17 Meloxicam [Mobic] 15 mg PO DAILY PRN #20 tab 08/14/17 diaZEpam [Valium] 5 mg PO TID PRN #10 tab 08/14/17 - Allergies Allergies/Adverse Reactions: Allergies Allergy/AdvReac Type Severity Reaction Status Date / Time morphine Allergy RASH Verified 08/14/17 19:57 Review of Systems ROS Statement: Except As Marked, All Systems Reviewed And Found Negative ENT: Positive for: Mouth Pain (across TMJ ) Physical Exam - Reviewed Nursing Documentation Reviewed: Yes Vital Signs Reviewed: Yes - Physical Exam Comments: GENERAL APPEARANCE: Patient is awake, alert, oriented x 3, in mild acute distress. SKIN: Warm, dry; (-) cyanosis. ENMT: (-) sinus swelling or tenderness. (-) fluctuance. (+) tenderness to palpation at right TMJ. Airway patent: (-) stridor. (-) pseudomembranes NECK: (-) tenderness, (-) crepitus. CHEST AND RESPIRATORY: (-) accessory muscle use. Lungs: (-) rales, (-) rhonchi, (-) wheezes, (-) rub; breath sounds equal bilaterally. HEART AND CARDIOVASCULAR: (-) irregularity; (-) murmur, (-) gallop, (-) rub. ABDOMEN AND GI: Soft; (-) tenderness, (-) guarding; (-) organomegaly; (-) mass ; (-) CVA tenderness. EXTREMITIES: (-) deformity; (-) cellulitis, (-) lymphangitis; (-) subungual hemorrhage; (-) edema. NEURO AND PSYCH: Mental status as above; (-) focal findings. - ECG O2 Sat by Pulse Oximetry: 100 (RA) Pulse Ox Interpretation: Normal Medical Decision Making Medical Decision Making: Time: 20:46 Initial Plan: --Toradol 60 mg IM --Valium 5 mg PO Upon reevaluation, patient feels significant improvement in symptoms. On exam, patient is AAOx3 in no acute distress, is smiling. Patient states that she feels comfortable going home. Patient will be discharged home. Advised to follow up with primary care physician or the clinic in 1-2 days without fail. Advised to take medication as prescribed. Return to the emergency room at any time for any new or worsening symptoms. Patient states she fully agrees with and understands discharge instructions. States that she agrees with the plan and disposition. Verbalized and repeated discharge instructions and plan. I have given the patient opportunity to ask any additional questions. ---- Scribe Attestation: Documented by Camille Wesley, acting as a scribe for Lisa Negron PA-C Provider Scribe Attestation: All medical record entries made by the Scribe were at my direction and personally dictated by me. I have reviewed the chart and agree that the record accurately reflects my personal performance of the history, physical exam, medical decision making, and the department course for this patient. I have also personally directed, reviewed, and agree with the discharge instructions and disposition. Disposition - Clinical Impression Clinical Impression: TMJ arthralgia - Patient ED Disposition Is Patient to be Admitted: No Counseled Patient/Family Regarding: Diagnosis, Need For Followup, Rx Given - Disposition [facility]errals[facility] [Outside] Disposition: Routine/Home Disposition Time: 21:45 Condition: STABLE Additional Instructions: Thank you for letting us take care of you today. You were treated for TMJ. The emergency medical care you received today was directed at your acute symptoms. If you were prescribed any medication, please fill it and take as directed. It may take several days for your symptoms to resolve. Return to the Emergency Department if your symptoms worsen, do not improve, or if you have any other problems. Please contact your doctor in 2 days for re-evaluation and follow up / or call one of the physicians/clinics you have been referred to that are listed on the Patient Visit Information form that is included in your discharge packet. Bring any paperwork you were given at discharge with you along with any medications you are taking to your follow up visit. Our treatment cannot replace ongoing medical care by a primary care provider (PCP) outside of the emergency department. Thank you for allowing the [facility] team to be part of your care today. Prescriptions: diaZEpam [Valium] 5 mg PO TID PRN #10 tab PRN Reason: Muscle Spasm Meloxicam [Mobic] 15 mg PO DAILY PRN #20 tab PRN Reason: Pain, Moderate (4-7) Forms: [employer] (S[place]i) Print Language: KAZAKH - PA / PASTRY CHEF / Resident Statement MD/DO has reviewed & agrees with the documentation as recorded.
== END 2017-08-14 22:32 | disposition home or self-care (01) ==
LOC: H.ER 19:28
DX: M26.629 Arthralgia of temporomandibular joint, unspecified side (principal)
CPT/HCPCS: 81025; 96372; 99282; J1885

== ENCOUNTER 2017-09-16 21:14 | Emergency (ER) | payer SELFPAY ==
[2017-09-16 21:15] VITALS: BMI 34.5
--- NOTE | 2017-09-16 23:01 | ED PDOC ---
HPI: Abdomen Chief Complaint (Nursing): Abdominal Pain Chief Complaint (Provider): pelvic pain History Per: Patient History/Exam Limitations: no limitations Onset/Duration Of Symptoms: Days (2) Current Symptoms Are (Timing): Still Present Location Of Pain/Discomfort: LLQ Quality Of Discomfort: "Pain" Additional Complaint(s): 27 y/o female presents with left lower abdominal pain x 2 days. Associated vaginal bleeding. Patient states her menstrual period was 2 weeks ago, and her periods are usually regular. Denies fever, nausea/vomiting, chest pain, shortness of breath, changes in bowel movements, urinary symptoms, vaginal discharge. Patient also reports persistent right ear pain. Patient was evaluated in [facility] and given "pills", and then went to a clinic where she was given Dermotic drops without relief. Denies drainage from ear, difficulty hearing. Past Medical History Reviewed: Historical Data, Nursing Documentation, Vital Signs Vital Signs: Last Vital Signs Temp 98.4 F 09/16/17 21:42 Pulse 89 09/16/17 21:42 Resp 16 09/16/17 21:42 BP 137/87 09/16/17 21:42 Pulse Ox 98 09/16/17 23:01 - Medical History PMH: Kidney Stones Denies: Chronic Kidney Disease - Surgical History Surgical History: Appendectomy, - Family History Family History: States: Unknown Family Hx - Immunization History Hx Tetanus Toxoid Vaccination: No Hx Influenza Vaccination: No Hx Pneumococcal Vaccination: No - Home Medications Home Medications: Ambulatory Orders Medication Instructions Recorded Diazepam [Valium] 2 mg PO Q12 PRN #14 tablet 01/13/17 Magnesium Oxide 500 mg PO BID #28 tablet 01/13/17 Meclizine [Meclizine*] 25 mg PO Q8 PRN #21 tab 01/13/17 Nitrofurantoin Macrocrystals 100 mg PO Q12 #14 cap 01/13/17 [Macrobid] Nitrofurantoin Macrocrystals 100 mg PO BID #14 tab 04/07/17 [Macrobid] Dicyclomine [Bentyl] 20 mg PO Q12 PRN #20 tab 04/12/17 Nitrofurantoin Macrocrystals 100 mg PO BID #14 cap 04/12/17 [Macrobid] Hydrocortisone 2.5% (Rectal) 1 applic [place] BID PRN #1 tube 07/01/17 [Anusol-HC] Naproxen [Naprosyn] 500 mg PO BID PRN #30 tab 07/01/17 DiphenhydrAMINE [Benadryl] 50 mg PO Q6H PRN #20 cap 07/22/17 predniSONE [predniSONE Tab] 20 mg PO DAILY #12 tab 07/22/17 Meloxicam [Mobic] 15 mg PO DAILY PRN #20 tab 08/14/17 diaZEpam [Valium] 5 mg PO TID PRN #10 tab 08/14/17 Naproxen [Naprosyn] 500 mg PO Q12 PRN #20 tablet 09/17/17 - Allergies Allergies/Adverse Reactions: Allergies Allergy/AdvReac Type Severity Reaction Status Date / Time morphine Allergy RASH Verified 09/16/17 21:42 Review of Systems ROS Statement: Except As Marked, All Systems Reviewed And Found Negative Genitourinary Female: Positive for: Vaginal Bleeding, Pelvic Pain Physical Exam - Reviewed Nursing Documentation Reviewed: Yes Vital Signs Reviewed: Yes - Physical Exam Appears: Positive for: Well, Non-toxic, No Acute Distress Head Exam: Positive for: ATRAUMATIC, NORMAL INSPECTION, NORMOCEPHALIC Skin: Positive for: Normal Color Eye Exam: Positive for: Normal appearance ENT: Positive for: Normal ENT Inspection, TM Is/Are (mild fluid noted behind right TM. No erythema, bulging. Left TM clear. EACs clear bilaterally) Cardiovascular/Chest: Positive for: Regular Rate, Rhythm Respiratory: Positive for: Normal Breath Sounds Gastrointestinal/Abdominal: Positive for: Bowel Sounds, Soft, Tenderness (LLQ, LUQ) Back: Positive for: Normal Inspection Extremity: Positive for: Normal ROM Neurologic/Psych: Positive for: Alert, Oriented - Laboratory Results Result Diagrams: 09/16/17 23:13 09/16/17 23:13 - ECG O2 Sat by Pulse Oximetry: 98 - Progress ED Course And Treament: labs, urine, TV u/s, IV toradol EXAM: US Pelvis, Transvaginal US Duplex Arterial/Venous of the Pelvis, Complete CLINICAL HISTORY: 27 years old, female; Pain and signs and symptoms; Menstruation abnormalities; Irregular menstruation; Pelvic pain; Additional info: Left pelvic pain, vaginal bleeding TECHNIQUE: Real-time transvaginal pelvic ultrasound (complete) with image documentation. Transvaginal imaging was used for better evaluation of the endometrium and adnexa. Real-time duplex ultrasound scan of the arterial and venous flow of the pelvis with color Doppler flow and spectral waveform analysis. COMPARISON: US - TRANSVAGINAL 2015-08-26 17:36 FINDINGS: Uterus/cervix: The uterus is anteverted and measures 7.7 x 4.3 x 4.9 cm. The endometrial stripe measures 6 mm. No myometrial mass. Right ovary: Right paraovarian cyst measuring 1.5 x 1.3 x 1.2 cm. The right ovary measures 2.7 x 1.6 x 2.7 cm. Duplex assessment demonstrates presence of color Doppler signal and spectral Doppler waveform in right ovary. No torsion. Left ovary: There is complex hemorrhagic left ovarian cyst measuring 2.8 x 2.2 x 1.9 cm. The left ovary measures 3.5 x 2.4 x 3.1 cm. Duplex assessment demonstrates presence of color Doppler signal and spectral Doppler waveform in left ovary. No torsion. Free fluid: No free fluid. IMPRESSION: 1. Right paraovarian simple cyst measuring 1.5 x 1.3 x 1.2 cm. this is unchanged from prior examination. 2. There is complex hemorrhagic left ovarian cyst measuring 2.8 x 2.2 x 1.9 cm. Patient educated on findings, discharged with rx naproxen. Follow up electrocardiograph operator 2-3 days. Advised Sudafed OT for ear Return precautions given Disposition - Clinical Impression Clinical Impression: Hemorrhagic cyst of left ovary, Vaginal bleeding, abnormal, Ear pain, right - Patient ED Disposition Is Patient to be Admitted: No Counseled Patient/Family Regarding: Studies Performed, Diagnosis, Need For Followup, Rx Given - Disposition [facility] [Outside] Disposition: Routine/Home Disposition Time: 03:17 Condition: IMPROVED Prescriptions: Naproxen [Naprosyn] 500 mg PO Q12 PRN #20 tablet PRN Reason: Pain, Moderate (4-7) Instructions: Ovarian Cysts Print Language: TURKISH
[2017-09-16 23:27] LABS: BASO % 0.4 % (0.0-2.0); EOS # 0.1 K/uL (0.0-0.7); HEMOGLOBIN 13.6 g/dL (12.0-16.0); LYMPH # 2.3 K/uL (1.0-4.3); LYMPH % 32.7 % (20.0-40.0); MEAN CELL VOLUME 87.9 fl (81.0-99.0); MEAN CORPUSCULAR HEMOGLOBIN 29.6 pg (27.0-31.0); MEAN CORPUSCULAR HGB CONC 33.6 g/dL (33.0-37.0); MONO # 0.7 K/uL (0.0-0.8); MONO % 9.4 % (0.0-10.0); NEUT # 3.9 K/uL (1.8-7.0); NEUT % 55.5 % (50.0-75.0); NRBC % 0.1 % (0.0-0.0); RBC 4.6 Mil/uL (3.80-5.20); RED CELL DISTRIBUTION WIDTH 13.6 % (11.5-14.5)
[2017-09-16 23:29] LABS: SQUAMOUS EPITHIAL 8 /hpf (0-5); URINE BACTERIA RARE (<OCC); URINE BILIRUBIN NEGATIVE (NEGATIVE); URINE BLOOD LARGE (NEGATIVE); URINE CLARITY SLIGHTY-CLOUDY (Clear); URINE COLOR YELLOW (YELLOW); URINE GLUCOSE (UA) NEG (Normal); URINE LEUKOCYTE ESTERASE TRACE Leu/uL (Negative); URINE PROTEIN 30 mg/dL (NEGATIVE)
[2017-09-16 23:41] LABS: ALB/GLOB RATIO 1.1 (1.0-2.1); ALBUMIN 4.1 g/dL (3.5-5.0); ALT/SGPT 76 U/L (9-52); AST/SGOT 43 U/L (14-36); BLOOD UREA NITROGEN 14 mg/dl (7-17); CALCIUM 9.5 mg/dL (8.4-10.2); GFR AFRICAN-AMERICAN > 60; GFR NON-AFRICAN AMERICAN > 60
--- NOTE | 2017-09-17 03:08 | US ---
EXAM: US Pelvis, Transvaginal US Duplex Arterial/Venous of the Pelvis, Complete CLINICAL HISTORY: 27 years old, female; Pain and signs and symptoms; Menstruation abnormalities; Irregular menstruation; Pelvic pain; Additional info: Left pelvic pain, vaginal bleeding TECHNIQUE: Real-time transvaginal pelvic ultrasound (complete) with image documentation. Transvaginal imaging was used for better evaluation of the endometrium and adnexa. Real-time duplex ultrasound scan of the arterial and venous flow of the pelvis with color Doppler flow and spectral waveform analysis. COMPARISON: US - TRANSVAGINAL 2015-08-26 17:36 FINDINGS: Uterus/cervix: The uterus is anteverted and measures 7.7 x 4.3 x 4.9 cm. The endometrial stripe measures 6 mm. No myometrial mass. Right ovary: Right paraovarian cyst measuring 1.5 x 1.3 x 1.2 cm. The right ovary measures 2.7 x 1.6 x 2.7 cm. Duplex assessment demonstrates presence of color Doppler signal and spectral Doppler waveform in right ovary. No torsion. Left ovary: There is complex hemorrhagic left ovarian cyst measuring 2.8 x 2.2 x 1.9 cm. The left ovary measures 3.5 x 2.4 x 3.1 cm. Duplex assessment demonstrates presence of color Doppler signal and spectral Doppler waveform in left ovary. No torsion. Free fluid: No free fluid. IMPRESSION: 1. Right paraovarian simple cyst measuring 1.5 x 1.3 x 1.2 cm. this is unchanged from prior examination. 2. There is complex hemorrhagic left ovarian cyst measuring 2.8 x 2.2 x 1.9 cm.
[2017-09-17 03:37] VITALS: BP 120/70; PULSE 78; RESP 18; TEMP 97.3; O2SAT 98
== END 2017-09-17 03:52 | disposition home or self-care (01) ==
LOC: H.ER 21:14
DX: N83.292 Other ovarian cyst, left side (principal); H92.01 Otalgia, right ear
CPT/HCPCS: 76830; 80053; 81003; 81025; 85025; 87086; 87181; 99284; J1885

== ENCOUNTER 2017-11-28 00:01 | Emergency (ER) | payer SELFPAY ==
[2017-11-28 00:01] VITALS: BMI 34.5
--- NOTE | 2017-11-28 00:27 | ED PDOC ---
HPI: General Adult Time Seen by Provider: 11/28/17 00:15 Chief Complaint (Provider): abd pain History Per: Patient, Family (Patient's at bedside is translating for patient in puerto rican) Additional Complaint(s): 27-year-old female presents with back pain and abdominal pain for 2 weeks. Patient was seen 2 weeks ago at [facility] and was diagnosed with urinary tract infection and sent home on amoxicillin. She states she does not feel any better despite taking amoxicillin for 5 days. She complains of nausea with no vomiting and has not had fever but does complain of chills. Patient denies vaginal bleeding or discharge. PMD: [place] Past Medical History Reviewed: Historical Data, Nursing Documentation, Vital Signs Vital Signs: Last Vital Signs Temp 98.3 F 11/28/17 00:26 Pulse 99 H 11/28/17 00:26 Resp 16 11/28/17 00:26 BP 119/76 11/28/17 00:26 Pulse Ox 100 11/28/17 04:33 - Medical History PMH: Kidney Stones - Surgical History Surgical History: Appendectomy, (x 1) - Family History Family History: States: No Known Family Hx - Living Arrangements Living Arrangements: With Family - Social History Current smoker - smoking cessation education provided: No Alcohol: None Drugs: Denies - Home Medications Home Medications: Ambulatory Orders Medication Instructions Recorded Diazepam [Valium] 2 mg PO Q12 PRN #14 tablet 01/13/17 Magnesium Oxide 500 mg PO BID #28 tablet 01/13/17 Meclizine [Meclizine*] 25 mg PO Q8 PRN #21 tab 01/13/17 Nitrofurantoin Macrocrystals 100 mg PO Q12 #14 cap 01/13/17 [Macrobid] Nitrofurantoin Macrocrystals 100 mg PO BID #14 tab 04/07/17 [Macrobid] Dicyclomine [Bentyl] 20 mg PO Q12 PRN #20 tab 04/12/17 Nitrofurantoin Macrocrystals 100 mg PO BID #14 cap 04/12/17 [Macrobid] Hydrocortisone 2.5% (Rectal) 1 applic [place] BID PRN #1 tube 07/01/17 [Anusol-HC] Naproxen [Naprosyn] 500 mg PO BID PRN #30 tab 07/01/17 DiphenhydrAMINE [Benadryl] 50 mg PO Q6H PRN #20 cap 07/22/17 predniSONE [predniSONE Tab] 20 mg PO DAILY #12 tab 07/22/17 Meloxicam [Mobic] 15 mg PO DAILY PRN #20 tab 08/14/17 diaZEpam [Valium] 5 mg PO TID PRN #10 tab 08/14/17 Naproxen [Naprosyn] 500 mg PO Q12 PRN #20 tablet 09/17/17 Amoxicillin 500 mg PO TID #21 tablet 09/19/17 Nitrofurantoin Macrocrystals 100 mg PO BID #14 cap 11/28/17 [Macrobid] Comb No.42/Folic Acid 1 tab PO DAILY #60 tab 11/28/17 [Prena1 Chew] - Allergies Allergies/Adverse Reactions: Allergies Allergy/AdvReac Type Severity Reaction Status Date / Time morphine Allergy RASH Verified 09/16/17 21:42 Review of Systems ROS Statement: Except As Marked, All Systems Reviewed And Found Negative Constitutional: Positive for: Chills. Negative for: Fever Cardiovascular: Negative for: Chest Pain Respiratory: Negative for: Cough Gastrointestinal: Positive for: Nausea, Abdominal Pain. Negative for: Vomiting , Diarrhea Genitourinary Female: Positive for: Dysuria. Negative for: Hematuria, Vaginal Discharge, Vaginal Bleeding Musculoskeletal: Positive for: Back Pain Physical Exam - Reviewed Nursing Documentation Reviewed: Yes Vital Signs Reviewed: Yes - Physical Exam Appears: Positive for: Well, Non-toxic, No Acute Distress Skin: Positive for: Normal Color. Negative for: Rash Eye Exam: Positive for: Normal appearance Cardiovascular/Chest: Positive for: Regular Rate, Rhythm Respiratory: Positive for: Normal Breath Sounds. Negative for: Wheezing, Respiratory Distress Gastrointestinal/Abdominal: Positive for: Tenderness (Mild tenderness to right and left lower quadrants, no distention, no guarding, no rebound) Back: Positive for: L CVA Tenderness, R CVA Tenderness Extremity: Positive for: Normal ROM Neurologic/Psych: Positive for: Alert, Oriented - Laboratory Results Result Diagrams: 11/28/17 00:50 11/28/17 00:50 Urine POC: Positive Urine dip results: Positive for: Leukocyte Esterase (trace), Blood (moderate). Negative for: Nitrate, Ketones, Glucose, Bilirubin, Protein - ECG O2 Sat by Pulse Oximetry: 100 Pulse Ox Interpretation: Normal - Other Rad OB TV US X-Ray: Read By Radiologist X-Ray Interpretation: see below Medical Decision Making Medical Decision Makin27 year old with abd and back pain Plan: Urine test - patient made aware of positive test result Urine dip CBC CMP Lipase Urine culture CHL/GC culture IVF IV zofran OB TV US UTI noted, 1 g Rocephin IV given in ED. US: FINDINGS: Gestation: Minimal gestational sac within the fundal endometrium containing a 4 mm yolk sac and pole. No heartbeat is identified at this time. Mean sac size is 14 mm suggesting an age of 5 weeks 4 days. The crown -rump length is 2 mm which is out of range. Placenta/amniotic fluid: Cannot be adequately evaluated due to the early gestational age. Uterus/cervix: Small anechoic or cystic area at the margin of myometrium endometrium measuring 2x 4 x 5 mm. The uterus measures 9.2 cm in its cephalocaudad dimension and 5.3 x 5.8 cm in its AP and lateral dimensions. Ovaries: The right ovary measures 3.1 x 2.4 x 2.4 cm and demonstrates blood flow. The left ovary is not seen. Free fluid : Trace free fluid which is physiologic. IMPRESSION: 1. Early intrauterine gestation. Sac size suggests an age of 5 weeks 4 days. There is a small pole with no heartbeat identified at this time, likely a reflection of age. Followup in 1-2 weeks may be of benefit for further evaluation of viability. 2. Small anechoic or cystic area at the margin of the endometrium and myometrium of uncertain etiology. Patient is aware of all diagnostic testing results, all questions answered. Rx vitamins and macrobid given. Patient was referred to women's clinic for follow up. Disposition - Clinical Impression Clinical Impression: Urinary tract infection during , - Patient ED Disposition Is Patient to be Admitted: No Counseled Patient/Family Regarding: Studies Performed, Diagnosis, Need For Followup, Rx Given - Disposition Referrals: [facility] [Outside] Disposition: Routine/Home Disposition Time: 04:01 Condition: STABLE Additional Instructions: Take prescription meds as directed. Follow-up with women's clinic in 2-3 days. Prescriptions: Nitrofurantoin Macrocrystals [Macrobid] 100 mg PO BID #14 cap Comb No.42/Folic Acid [Prena1 Chew] 1 tab PO DAILY #60 tab Instructions: Urinary Tract Infection, Adult (DC) Forms: [employer] (Vietnamese) Print Language: POLISH Results - Lab Results Lab Results: 11/28/17 11/28/17 11/28/17 01:00 00:54 00:50 WBC RBC Hgb Hct MCV MCH MCHC RDW Plt Count MPV Neut % (Auto) Lymph % (Auto) [place] % (Auto) Eos % (Auto) Baso % (Auto) Neut # (Auto) Lymph # (Auto) [place] # (Auto) Eos # (Auto) Baso # (Auto) Sodium 138 Potassium 3.8 Chloride 101 Carbon Dioxide 25 Anion Gap 16 BUN 13 Creatinine 0.6 L Est GFR ( Amer) > 60 Est GFR (Non-Af Amer) > 60 Random Glucose 98 Calcium 9.2 Total Bilirubin 0.4 AST 36 ALT 55 H D Alkaline Phosphatase 68 Total Protein 7.1 Albumin 3.9 Globulin 3.2 Albumin/Globulin Ratio 1.2 Lipase 159 Beta HCG, Quant 52922.00 Urine Color Yellow Urine Clarity Cloudy Urine pH 6.0 Ur Specific [place] 1.026 Urine Protein Negative Urine Glucose (UA) Neg Urine Ketones Negative Urine Blood Moderate Urine Nitrate Negative Urine Bilirubin Negative Urine Urobilinogen 2.0 H Ur Leukocyte Esterase Mod Urine RBC (Auto) 5 H Urine Microscopic WBC 11 H Ur Squamous Epith Cells 7 H Urine Bacteria Rare 11/28/17 00:50 WBC 8.4 RBC 4.13 Hgb 12.6 Hct 36.7 MCV 88.9 MCH 30.4 MCHC 34.3 RDW 13.5 Plt Count 296 MPV 8.9 Neut % (Auto) 46.4 L Lymph % (Auto) 43.9 H [place] % (Auto) 7.3 Eos % (Auto) 1.6 Baso % (Auto) 0.8 Neut # (Auto) 3.9 Lymph # (Auto) 3.7 [place] # (Auto) 0.6 Eos # (Auto) 0.1 Baso # (Auto) 0.1 Sodium Potassium Chloride Carbon Dioxide Anion Gap BUN Creatinine Est GFR ( Amer) Est GFR (Non-Af Amer) Random Glucose Calcium Total Bilirubin AST ALT Alkaline Phosphatase Total Protein Albumin Globulin Albumin/Globulin Ratio Lipase Beta HCG, Quant Urine Color Urine Clarity Urine pH Ur Specific [place] Urine Protein Urine Glucose (UA) Urine Ketones Urine Blood Urine Nitrate Urine Bilirubin Urine Urobilinogen Ur Leukocyte Esterase Urine RBC (Auto) Urine Microscopic WBC Ur Squamous Epith Cells Urine Bacteria
[2017-11-28 00:31] VITALS: RESP 16; O2SAT 100
[2017-11-28] MEDS ORDERED: Sodium Chloride 0.9% 1,000 ML IV STA (00:36)
[2017-11-28 01:01] LABS: BASO # 0.1 K/uL (0.0-0.2); BASO % 0.8 % (0.0-2.0); EOS # 0.1 K/uL (0.0-0.7); EOS % 1.6 % (0.0-4.0); HEMOGLOBIN 12.6 g/dL (12.0-16.0); LYMPH # 3.7 K/uL (1.0-4.3); LYMPH % 43.9 % (20.0-40.0); MEAN CELL VOLUME 88.9 fl (81.0-99.0); MEAN CORPUSCULAR HEMOGLOBIN 30.4 pg (27.0-31.0); MEAN CORPUSCULAR HGB CONC 34.3 g/dL (33.0-37.0); MEAN PLATELET VOLUME 8.9 fl (7.2-11.7); MONO # 0.6 K/uL (0.0-0.8); MONO % 7.3 % (0.0-10.0); NEUT # 3.9 K/uL (1.8-7.0); NEUT % 46.4 % (50.0-75.0); RBC 4.13 Mil/uL (3.80-5.20); RED CELL DISTRIBUTION WIDTH 13.5 % (11.5-14.5); WHITE BLOOD COUNT 8.4 K/uL (4.8-10.8)
[2017-11-28 01:12] LABS: SQUAMOUS EPITHIAL 7 /hpf (0-5); URINE BACTERIA RARE (<OCC); URINE BILIRUBIN NEGATIVE (NEGATIVE); URINE BLOOD MODERATE (NEGATIVE); URINE CLARITY CLOUDY (Clear); URINE COLOR YELLOW (YELLOW); URINE GLUCOSE (UA) NEG (Normal); URINE LEUKOCYTE ESTERASE MOD Leu/uL (Negative); URINE PROTEIN NEGATIVE (NEGATIVE)
[2017-11-28 01:12] LABS: ALB/GLOB RATIO 1.2 (1.0-2.1); ALBUMIN 3.9 g/dL (3.5-5.0); ALT/SGPT 55 U/L (9-52); AST/SGOT 36 U/L (14-36); BLOOD UREA NITROGEN 13 mg/dl (7-17); CALCIUM 9.2 mg/dL (8.4-10.2); GFR AFRICAN-AMERICAN > 60; GFR NON-AFRICAN AMERICAN > 60; LIPASE 159 U/L (23-300)
[2017-11-28] MEDS ORDERED: cefTRIAXone (Rocephin) 1 gm Inj ONE (02:02)
[2017-11-28 04:47] VITALS: BP 121/72; PULSE 82; TEMP 98.4
--- NOTE | 2017-11-28 06:53 | US ---
PROCEDURE: HISTORY: ? weeks with abd pain COMPARISON: TECHNIQUE: FINDINGS: Intrauterine gestational sac with a mean sac diameter corresponding to 5 weeks and 4 days gestational age. pole with crown-rump length of 2 millimeters. No heart motion. IMPRESSION: As above. Recommend short-term interval follow-up.
== END 2017-11-28 04:40 | disposition home or self-care (01) ==
LOC: H.ER 00:01
DX: N39.0 Urinary tract infection, site not specified (principal)
CPT/HCPCS: 76817; 80053; 81003; 81025; 83690; 84702; 85025; 87086; 96361; 96365; 96375; 99284; J0696; J2405; J7030

== ENCOUNTER 2017-12-13 06:04 | Emergency (ER) | payer SELFPAY ==
[2017-12-13 06:04] VITALS: BMI 34.5
[2017-12-13 06:24] VITALS: O2SAT 99
--- NOTE | 2017-12-13 07:07 | ED PDOC ---
HPI: Female Pain Chief Complaint (Provider): Worsening pelvic pain for 3 days History Per: Patient Additional History Per: Patient Additional Complaint(s): 27 year old female, with IUP at 7 weeks GA by US, presented to ED for worsening pelvic pain that began 3 days ago. She reports having been treated for UTI 2 weeks ago. Urine culture was negative. She reports pelvic pain is sharp, 8/10 in severity. She is curled over in bed. She has not taken anything for pain. She denies fevers, but admits chills, diarrhea. No night sweats, nausea, vomiting, vaginal bleeding or discharge. PMH: denies PMD: [facility] Abnormal Vaginal Bleeding: No <Silva Saldaña - Last Filed: 12/13/17 07:01> <Lonnie Gee - Last Filed: 12/13/17 20:55> Time Seen by Provider: 12/13/17 06:46 Chief Complaint (Nursing): Female Genitourinary Supervising Attending Note - Supervising Attending Note The Documented history was done by the: Physician Loss Control Consultant The documented physical exam was done by the: Physician Loss Control Consultant - Attestation: I have personally seen and examined this patient.: Yes I have fully participated in the care of the patient.: Yes I have reviewed all pertinent clinical information, including history, physical exam and plan: Yes <Lonnie Gee - Last Filed: 12/13/17 20:55> Past Medical History Vital Signs: Last Vital Signs Temp 98.1 F 12/13/17 06:20 Pulse 84 12/13/17 06:20 Resp 16 12/13/17 06:20 BP 113/69 12/13/17 06:20 Pulse Ox 99 12/13/17 06:20 - Surgical History Surgical History: Appendectomy, (x 1) - Family History Family History: States: Unknown Family Hx - Immunization History Hx Tetanus Toxoid Vaccination: No Hx Influenza Vaccination: No Hx Pneumococcal Vaccination: No <Silva Saldaña - Last Filed: 12/13/17 07:01> Vital Signs: Last Vital Signs Temp 98.6 F 12/13/17 11:57 Pulse 72 12/13/17 11:57 Resp 14 12/13/17 11:57 BP 110/70 12/13/17 11:57 Pulse Ox 99 12/13/17 12:50 <Lonnie Gee - Last Filed: 12/13/17 20:55> - Home Medications Home Medications: Ambulatory Orders Medication Instructions Recorded Diazepam [Valium] 2 mg PO Q12 PRN #14 tablet 01/13/17 Magnesium Oxide 500 mg PO BID #28 tablet 01/13/17 Meclizine [Meclizine*] 25 mg PO Q8 PRN #21 tab 01/13/17 Nitrofurantoin Macrocrystals 100 mg PO Q12 #14 cap 01/13/17 [Macrobid] Nitrofurantoin Macrocrystals 100 mg PO BID #14 tab 04/07/17 [Macrobid] Dicyclomine [Bentyl] 20 mg PO Q12 PRN #20 tab 04/12/17 Nitrofurantoin Macrocrystals 100 mg PO BID #14 cap 04/12/17 [Macrobid] Hydrocortisone 2.5% (Rectal) 1 applic [place] BID PRN #1 tube 07/01/17 [Anusol-HC] Naproxen [Naprosyn] 500 mg PO BID PRN #30 tab 07/01/17 DiphenhydrAMINE [Benadryl] 50 mg PO Q6H PRN #20 cap 07/22/17 predniSONE [predniSONE Tab] 20 mg PO DAILY #12 tab 07/22/17 Meloxicam [Mobic] 15 mg PO DAILY PRN #20 tab 08/14/17 diaZEpam [Valium] 5 mg PO TID PRN #10 tab 08/14/17 Naproxen [Naprosyn] 500 mg PO Q12 PRN #20 tablet 09/17/17 Amoxicillin 500 mg PO TID #21 tablet 09/19/17 Nitrofurantoin Macrocrystals 100 mg PO BID #14 cap 11/28/17 [Macrobid] Comb No.42/Folic Acid 1 tab PO DAILY #60 tab 11/28/17 [Prena1 Chew] Acetaminophen [Tylenol Extra 500 mg PO Q6 PRN #12 tablet 12/13/17 Strength] - Allergies Allergies/Adverse Reactions: Allergies Allergy/AdvReac Type Severity Reaction Status Date / Time morphine Allergy RASH Verified 09/16/17 21:42 Review of Systems Constitutional: Positive for: Chills. Negative for: Fever, Sweats Eyes: Negative for: Pain ENT: Negative for: Ear Pain, Nose Discharge Cardiovascular: Negative for: Chest Pain, Palpitations Respiratory: Negative for: Cough, Shortness of Breath, Hemoptysis Gastrointestinal: Positive for: Abdominal Pain, Diarrhea. Negative for: Nausea , Vomiting, Constipation Genitourinary Female: Positive for: Frequency (urgency). Negative for: Dysuria , Hematuria, Vaginal Discharge, Vaginal Bleeding, Pelvic Pain Neurological: Negative for: Weakness, Numbness, Altered Mental Status Psych: Negative for: Anxiety, Depression <Silva Saldaña - Last Filed: 12/13/17 07:01> Physical Exam - Reviewed Vital Signs Reviewed: Yes - Physical Exam Appears: Positive for: Well, Non-toxic, In Acute Distress (moderate) Head Exam: Positive for: ATRAUMATIC, NORMAL INSPECTION, NORMOCEPHALIC Skin: Positive for: Normal Color, Warm. Negative for: Diaphoresis Eye Exam: Positive for: Normal appearance Neck: Positive for: Normal Cardiovascular/Chest: Positive for: Regular Rate, Rhythm. Negative for: Murmur , Bradycardia, Tachycardia Respiratory: Positive for: Normal Breath Sounds. Negative for: Decreased Breath Sounds, Stridor, Wheezing Back: Positive for: Normal Inspection. Negative for: L CVA Tenderness, R CVA Tenderness Extremity: Negative for: Tenderness, Pedal Edema Neurologic/Psych: Positive for: Alert, nuclear process engineer II-XII, Oriented, Mood/Affect ( appropriate). Negative for: Motor/Sensory Deficits <Silva Saldaña - Last Filed: 12/13/17 07:01> - ECG O2 Sat by Pulse Oximetry: 99 - Progress ED Course And Treament: 27 year old female with pelvic pain at 7 weeks gestational age. --Tylenol 975mg --CBC --CMP --UA --UCX --TV ultrasound Case d/w Dr. Gee, will sign out to Dr. Red. <Silva Saldaña - Last Filed: 12/13/17 07:01> - Laboratory Results Result Diagrams: 12/13/17 07:40 12/13/17 07:40 <Lonnie Gee - Last Filed: 12/13/17 20:55> Disposition - Disposition Disposition: Transfer of Care Disposition Time: 07:14 <Silva Saldaña - Last Filed: 12/13/17 07:01> <Lonnie Gee - Last Filed: 12/13/17 20:55> - Clinical Impression Clinical Impression: Pelvic pain during in first trimester, antepartum, Subchorionic hematoma - Disposition Condition: FAIR Additional Instructions: See your OB doctor in 2-3 days for re-evaluation. Repeat urine test in one week to assure small microscopic blood resolves. Urine culture repeated today, if its positive you will be called in 2-3 days. Return to ER for any worse or new symptoms, fever, pain, bleeding, urinary pain or any concern. Consulte a worley mdico de OB en 2-3 moore para amalia nueva evaluacin. Repita el examen de orina en amalia semana para asegurar que se resuelva la rommel microsc pica pequea. La cultura de la orina repiti hoy, si worley positivo usted ser llamado en 2-3 d as. Vuelva a er para nba si hay sntomas peores o nuevos, fiebre, dolor, sangrado, dolor urinario o cualquier preocupacin. Prescriptions: Acetaminophen [Tylenol Extra Strength] 500 mg PO Q6 PRN #12 tablet PRN Reason: Pain, Moderate (4-7) Instructions: Blood in the Urine (Hematuria) in Adults, Threatened Miscarriage , Acute Pelvic Pain (DC) Forms: [employer] (Hebrew) Print Language: KUWAITI
--- NOTE | 2017-12-13 07:08 | ED PDOC ---
- Laboratory Results Result Diagrams: 12/13/17 07:40 12/13/17 07:40 - ECG O2 Sat by Pulse Oximetry: 99 Medical Decision Making Medical Decision Making: received 7am pending workup for pelvic pain US, labs, tylenol Accession No. : [id number] Patient Name / ID : JAKE ALEMAN / [id number] Exam Date : 12/13/2017 09:24:59 ( Approved ) Study Comment : Sex / Age : F / 27Y Creator : Seth Ariza MD Dictator : Application Systems Administrator : Line Inspector : Seth Ariza MD Approver2 : Report Date : 12/13/2017 11:58:01 My Comment : Date of service: 12/13/2017 HISTORY: pelvic pain COMPARISON: None available. TECHNIQUE: FINDINGS: UTERUS: Measures 9.8 x 7.4 x 5.0 cm. Normal in size and appearance. Anteverted No fibroid or other mass lesion see transvaginal sonographic evaluation of pelvis performed. N. ENDOMETRIUM: Gestational sac: MS D = 2.8 cm = 7 weeks 5 days Yolk sac: 0.5 cm pole: CRL = 1.5 cm = 7 weeks 6 days Heart motion: 145 BPM Average ultrasound age = 7 weeks 6 days 0 weeks 4 days CARLOS based on average ultrasound age 0207/26/2018 Small subchorionic hemorrhage measuring 11 mm x 7 mm by 9 mm. CERVIX: No cervical abnormality identified. Cervix measures approximately 3.6 cm RIGHT OVARY: Measures 2.6 x 2.8 x 2.5 cm. No solid mass. Normal flow. . Small corpus luteum cyst measuring 1.5 x 1.6 x 1.3 cm LEFT OVARY: Not visualized FREE FLUID: No significant free fluid noted. OTHER FINDINGS: None. IMPRESSION: Single living intrauterine gestation with average ultrasound age 7 weeks 6 days 0 weeks 4 days. Heart rate detected at 145 BPM There is a tiny subchorionic hemorrhage measuring approximately 11 mm times 7 mm x 9 mm Cervix is closed Discussed results in pashto via [place] interpreter Brigida, she feels better , will followup w OB tomorrow. Urine cx neg from prior visit, culture re- ordered for confirmation. +RBC in urine but no leuk esterase or WBC. States had CT scan at [facility] before told L kidney was swollen because of infection, but appears no UTI currently. Disposition - Clinical Impression Clinical Impression: Pelvic pain during in first trimester, antepartum, Subchorionic hematoma - POA Present On Arrival: None - Disposition Disposition: Routine/Home Disposition Time: 11:30 Condition: FAIR Additional Instructions: See your OB doctor in 2-3 days for re-evaluation. Repeat urine test in one week to assure small microscopic blood resolves. Urine culture repeated today, if its positive you will be called in 2-3 days. Return to ER for any worse or new symptoms, fever, pain, bleeding, urinary pain or any concern. Consulte a worley mdico de OB en 2-3 moore para amalia nueva evaluacin. Repita el examen de orina en amalia semana para asegurar que se resuelva la rommel microsc pica pequea. La cultura de la orina repiti hoy, si worley positivo usted ser llamado en 2-3 d as. Vuelva a er para nba si hay sntomas peores o nuevos, fiebre, dolor, sangrado, dolor urinario o cualquier preocupacin. Prescriptions: Acetaminophen [Tylenol Extra Strength] 500 mg PO Q6 PRN #12 tablet PRN Reason: Pain, Moderate (4-7) Instructions: Threatened Miscarriage, Acute Pelvic Pain (DC), Blood in the Urine (Hematuria) in Adults Forms: [facility] (Ugandan) Print Language: MALAY
[2017-12-13 08:00] LABS: BASO % 0.5 % (0.0-2.0); EOS # 0.1 K/uL (0.0-0.7); EOS % 1.3 % (0.0-4.0); HEMOGLOBIN 12.9 g/dL (12.0-16.0); LYMPH # 2.5 K/uL (1.0-4.3); LYMPH % 31.4 % (20.0-40.0); MEAN CELL VOLUME 89.9 fl (81.0-99.0); MEAN CORPUSCULAR HEMOGLOBIN 30.8 pg (27.0-31.0); MEAN CORPUSCULAR HGB CONC 34.2 g/dL (33.0-37.0); MEAN PLATELET VOLUME 8.9 fl (7.2-11.7); MONO # 0.5 K/uL (0.0-0.8); MONO % 6.3 % (0.0-10.0); NEUT # 4.7 K/uL (1.8-7.0); NEUT % 60.5 % (50.0-75.0); NRBC % 0.1 % (0.0-0.0); RBC 4.19 Mil/uL (3.80-5.20); RED CELL DISTRIBUTION WIDTH 13.6 % (11.5-14.5); WHITE BLOOD COUNT 7.8 K/uL (4.8-10.8)
[2017-12-13 08:25] LABS: ALB/GLOB RATIO 1.2 (1.0-2.1); ALBUMIN 4.1 g/dL (3.5-5.0); ALT/SGPT 36 U/L (9-52); AST/SGOT 26 U/L (14-36); BLOOD UREA NITROGEN 9 mg/dl (7-17); CALCIUM 9.1 mg/dL (8.4-10.2); GFR AFRICAN-AMERICAN > 60; GFR NON-AFRICAN AMERICAN > 60
[2017-12-13 08:29] LABS: SQUAMOUS EPITHIAL 4 /hpf (0-5); URINE BACTERIA RARE (<OCC); URINE BILIRUBIN NEGATIVE (NEGATIVE); URINE BLOOD MODERATE (NEGATIVE); URINE CLARITY SLIGHTY-CLOUDY (Clear); URINE COLOR YELLOW (YELLOW); URINE GLUCOSE (UA) NEG (Normal); URINE LEUKOCYTE ESTERASE NEG Leu/uL (Negative); URINE PROTEIN NEGATIVE (NEGATIVE); URINE UROBILINOGEN 0.2-1.0 mg/dL (0.2-1.0)
[2017-12-13 11:58] VITALS: BP 110/70; PULSE 72; RESP 14; TEMP 98.6
--- NOTE | 2017-12-13 12:00 | US ---
Date of service: 12/13/2017 HISTORY: pelvic pain COMPARISON: None available. TECHNIQUE: FINDINGS: UTERUS: Measures 9.8 x 7.4 x 5.0 cm. Normal in size and appearance. Anteverted No fibroid or other mass lesion see transvaginal sonographic evaluation of pelvis performed. N. ENDOMETRIUM: Gestational sac: MS D = 2.8 cm = 7 weeks 5 days Yolk sac: 0.5 cm pole: CRL = 1.5 cm = 7 weeks 6 days Heart motion: 145 BPM Average ultrasound age = 7 weeks 6 days 0 weeks 4 days CARLOS based on average ultrasound age 0207/26/2018 Small subchorionic hemorrhage measuring 11 mm x 7 mm by 9 mm. CERVIX: No cervical abnormality identified. Cervix measures approximately 3.6 cm RIGHT OVARY: Measures 2.6 x 2.8 x 2.5 cm. No solid mass. Normal flow. . Small corpus luteum cyst measuring 1.5 x 1.6 x 1.3 cm LEFT OVARY: Not visualized FREE FLUID: No significant free fluid noted. OTHER FINDINGS: None. IMPRESSION: Single living intrauterine gestation with average ultrasound age 7 weeks 6 days 0 weeks 4 days. Heart rate detected at 145 BPM There is a tiny subchorionic hemorrhage measuring approximately 11 mm times 7 mm x 9 mm Cervix is closed
== END 2017-12-13 13:05 | disposition home or self-care (01) ==
LOC: H.ER 06:04
DX: O20.8 Other hemorrhage in early pregnancy (principal); R10.2 Pelvic and perineal pain; Z3A.01 Less than 8 weeks gestation of pregnancy

== ENCOUNTER 2018-05-14 20:28 | Emergency (ER) | payer SELFPAY ==
[2018-05-14 20:28] VITALS: BMI 34.5
[2018-05-14 21:13] VITALS: BP 144/87; PULSE 122; RESP 26; TEMP 98.4; O2SAT 100
[2018-05-14] MEDS ORDERED: Sodium Chloride 0.9% 1,000 ML IV STA (21:43)
--- NOTE | 2018-05-14 21:47 | ED PDOC ---
HPI: Abdomen Time Seen by Provider: 05/14/18 21:28 Chief Complaint (Nursing): Abdominal Pain History Per: Patient Onset/Duration Of Symptoms: Other (2 weeks) Current Symptoms Are (Timing): Still Present Severity: Mild Location Of Pain/Discomfort: Epigastric Quality Of Discomfort: Unable To Describe Associated Symptoms: Fever, Nausea, Diarrhea, Urinary Symptoms Exacerbating Factors: None Alleviating Factors: None Additional Complaint(s): Epigastric pain assoc with nausea and diarrhea x, started with flu like sxs 2 weeks and has persisted. Past Medical History Vital Signs: Last Vital Signs Temp 98.4 F 05/14/18 21:11 Pulse 122 H 05/14/18 21:11 Resp 26 H 05/14/18 21:11 BP 144/87 05/14/18 21:11 Pulse Ox 100 05/14/18 21:11 - Medical History PMH: Kidney Stones Denies: Chronic Kidney Disease - Surgical History Surgical History: Appendectomy, (x 1) - Family History Family History: States: Unknown Family Hx - Immunization History Hx Tetanus Toxoid Vaccination: No Hx Influenza Vaccination: No Hx Pneumococcal Vaccination: No - Home Medications Home Medications: Ambulatory Orders Medication Instructions Recorded Diazepam [Valium] 2 mg PO Q12 PRN #14 tablet 01/13/17 Magnesium Oxide 500 mg PO BID #28 tablet 01/13/17 Meclizine [Meclizine*] 25 mg PO Q8 PRN #21 tab 01/13/17 Nitrofurantoin Macrocrystals 100 mg PO Q12 #14 cap 01/13/17 [Macrobid] Nitrofurantoin Macrocrystals 100 mg PO BID #14 tab 04/07/17 [Macrobid] Dicyclomine [Bentyl] 20 mg PO Q12 PRN #20 tab 04/12/17 Nitrofurantoin Macrocrystals 100 mg PO BID #14 cap 04/12/17 [Macrobid] Hydrocortisone 2.5% (Rectal) 1 applic [place] BID PRN #1 tube 07/01/17 [Anusol-HC] Naproxen [Naprosyn] 500 mg PO BID PRN #30 tab 07/01/17 DiphenhydrAMINE [Benadryl] 50 mg PO Q6H PRN #20 cap 07/22/17 predniSONE [predniSONE Tab] 20 mg PO DAILY #12 tab 07/22/17 Meloxicam [Mobic] 15 mg PO DAILY PRN #20 tab 08/14/17 diaZEpam [Valium] 5 mg PO TID PRN #10 tab 08/14/17 Naproxen [Naprosyn] 500 mg PO Q12 PRN #20 tablet 09/17/17 Amoxicillin 500 mg PO TID #21 tablet 09/19/17 Nitrofurantoin Macrocrystals 100 mg PO BID #14 cap 11/28/17 [Macrobid] Comb No.42/Folic Acid 1 tab PO DAILY #60 tab 11/28/17 [Prena1 Chew] Acetaminophen [Tylenol Extra 500 mg PO Q6 PRN #12 tablet 12/13/17 Strength] Atropine/Diphenoxylate [Lonox 1 tab PO Q8 #10 tab 05/14/18 0.025 MG-2.5 MG] Famotidine [Pepcid] 20 mg PO Q12 #20 tab 05/14/18 Ondansetron [Zofran] 4 mg PO Q8H #10 tab 05/14/18 - Allergies Allergies/Adverse Reactions: Allergies Allergy/AdvReac Type Severity Reaction Status Date / Time morphine Allergy RASH Verified 05/14/18 21:11 Review of Systems Constitutional: Positive for: Fever Gastrointestinal: Positive for: Nausea, Abdominal Pain, Diarrhea Genitourinary Female: Negative for: Dysuria, Frequency Physical Exam - Physical Exam Appears: Positive for: Non-toxic, No Acute Distress Skin: Positive for: Normal Color, Warm, DRY ENT: Positive for: Normal ENT Inspection Neck: Positive for: Normal, Painless ROM Cardiovascular/Chest: Positive for: Regular Rate, Rhythm Respiratory: Positive for: CNT, Normal Breath Sounds Gastrointestinal/Abdominal: Positive for: Bowel Sounds, Soft, Tenderness (Epigastric area) Extremity: Positive for: Normal ROM Neurologic/Psych: Positive for: Alert, Oriented - Laboratory Results Result Diagrams: 05/14/18 22:33 05/14/18 22:33 - ECG O2 Sat by Pulse Oximetry: 100 Disposition - Clinical Impression Clinical Impression: Gastroenteritis - Patient ED Disposition Is Patient to be Admitted: No Counseled Patient/Family Regarding: Studies Performed, Diagnosis, Need For Followup, Rx Given - Disposition Referrals: [facility] [Outside] Disposition: Routine/Home Disposition Time: 23:28 Condition: FAIR Prescriptions: Atropine/Diphenoxylate [Lonox 0.025 MG-2.5 MG] 1 tab PO Q8 #10 tab Famotidine [Pepcid] 20 mg PO Q12 #20 tab Ondansetron [Zofran] 4 mg PO Q8H #10 tab Instructions: Gastroenteritis (ED) Forms: [facility] (Mauritian) Print Language: MONTENEGRIN
[2018-05-14 22:42] LABS: BASO # 0.2 K/uL (0.0-0.2); BASO % 1.5 % (0.0-2.0); EOS # 0.2 K/uL (0.0-0.7); EOS % 1.7 % (0.0-4.0); HEMOGLOBIN 13.2 g/dL (12.0-16.0); LYMPH # 2.4 K/uL (1.0-4.3); LYMPH % 23.7 % (20.0-40.0); MEAN CELL VOLUME 84.4 fl (81.0-99.0); MEAN CORPUSCULAR HEMOGLOBIN 28.2 pg (27.0-31.0); MEAN CORPUSCULAR HGB CONC 33.4 g/dL (33.0-37.0); MEAN PLATELET VOLUME 9.1 fl (7.2-11.7); MONO # 0.9 K/uL (0.0-0.8); MONO % 8.6 % (0.0-10.0); NEUT # 6.5 K/uL (1.8-7.0); NEUT % 64.5 % (50.0-75.0); NRBC % 0.3 % (0.0-0.0); RBC 4.67 Mil/uL (3.80-5.20); RED CELL DISTRIBUTION WIDTH 15.9 % (11.5-14.5)
[2018-05-14 22:53] LABS: ALB/GLOB RATIO 1.1 (1.0-2.1); ALBUMIN 4.3 g/dL (3.5-5.0); ALT/SGPT 76 U/L (9-52); AST/SGOT 58 U/L (14-36); BLOOD UREA NITROGEN 9 mg/dl (7-17); CALCIUM 9.7 mg/dL (8.4-10.2); GFR NON-AFRICAN AMERICAN > 60
== END 2018-05-14 23:30 | disposition home or self-care (01) ==
LOC: H.ER 20:28
DX: K52.9 Noninfective gastroenteritis and colitis, unspecified (principal)
CPT/HCPCS: 80053; 81025; 85025; 87804; 96374; 99283; J7030

== ENCOUNTER 2018-07-09 21:55 | Emergency (ER) | payer SELFPAY ==
[2018-07-09 21:56] VITALS: BMI 34.5
[2018-07-09 22:46] VITALS: BP 131/90; PULSE 87; RESP 16; TEMP 98; O2SAT 100
--- NOTE | 2018-07-09 23:15 | ED PDOC ---
HPI: General Adult Time Seen by Provider: 07/09/18 23:11 Chief Complaint (Nursing): Medical Clearance Chief Complaint (Provider): hemorrhoids History Per: Patient (27 y/o female with h/o hemorrhoids here with worsening pain this week. Has tried cream in the region without relief.) Past Medical History Reviewed: Historical Data, Nursing Documentation, Vital Signs Vital Signs: Last Vital Signs Temp 98.0 F 07/09/18 22:44 Pulse 87 07/09/18 22:44 Resp 16 07/09/18 22:44 BP 131/90 07/09/18 22:44 Pulse Ox 100 07/09/18 22:44 - Medical History PMH: Kidney Stones Denies: Chronic Kidney Disease - Surgical History Surgical History: Appendectomy, (x 1) - Family History Family History: States: Unknown Family Hx - Immunization History Hx Tetanus Toxoid Vaccination: No Hx Influenza Vaccination: No Hx Pneumococcal Vaccination: No - Home Medications Home Medications: Ambulatory Orders Medication Instructions Recorded Diazepam [Valium] 2 mg PO Q12 PRN #14 tablet 01/13/17 Magnesium Oxide 500 mg PO BID #28 tablet 01/13/17 Meclizine [Meclizine*] 25 mg PO Q8 PRN #21 tab 01/13/17 Nitrofurantoin Macrocrystals 100 mg PO Q12 #14 cap 01/13/17 [Macrobid] Nitrofurantoin Macrocrystals 100 mg PO BID #14 tab 04/07/17 [Macrobid] Dicyclomine [Bentyl] 20 mg PO Q12 PRN #20 tab 04/12/17 Nitrofurantoin Macrocrystals 100 mg PO BID #14 cap 04/12/17 [Macrobid] Hydrocortisone 2.5% (Rectal) 1 applic MT BID PRN #1 tube 07/01/17 [Anusol-HC] Naproxen [Naprosyn] 500 mg PO BID PRN #30 tab 07/01/17 DiphenhydrAMINE [Benadryl] 50 mg PO Q6H PRN #20 cap 07/22/17 predniSONE [predniSONE Tab] 20 mg PO DAILY #12 tab 07/22/17 Meloxicam [Mobic] 15 mg PO DAILY PRN #20 tab 08/14/17 diaZEpam [Valium] 5 mg PO TID PRN #10 tab 08/14/17 Naproxen [Naprosyn] 500 mg PO Q12 PRN #20 tablet 09/17/17 Amoxicillin 500 mg PO TID #21 tablet 09/19/17 Nitrofurantoin Macrocrystals 100 mg PO BID #14 cap 11/28/17 [Macrobid] Comb No.42/Folic Acid 1 tab PO DAILY #60 tab 11/28/17 [Prena1 Chew] Acetaminophen [Tylenol Extra 500 mg PO Q6 PRN #12 tablet 12/13/17 Strength] Atropine/Diphenoxylate [Lonox 1 tab PO Q8 #10 tab 05/14/18 0.025 MG-2.5 MG] Famotidine [Pepcid] 20 mg PO Q12 #20 tab 05/14/18 Ondansetron [Zofran] 4 mg PO Q8H #10 tab 05/14/18 Docusate Sodium [Colace] 100 mg PO BID PRN #20 capsule 07/09/18 Hydrocortisone [Anusol-HC] 25 mg RC BID #14 sup 07/09/18 Ibuprofen [Motrin] 600 mg PO Q8 PRN #21 tab 07/09/18 - Allergies Allergies/Adverse Reactions: Allergies Allergy/AdvReac Type Severity Reaction Status Date / Time morphine Allergy RASH Verified 05/14/18 21:11 Review of Systems ROS Statement: Except As Marked, All Systems Reviewed And Found Negative Physical Exam - Reviewed Nursing Documentation Reviewed: Yes Vital Signs Reviewed: Yes - Physical Exam Appears: Positive for: Well, Non-toxic, No Acute Distress Head Exam: Positive for: ATRAUMATIC, NORMAL INSPECTION, NORMOCEPHALIC Skin: Positive for: Normal Color, Warm, DRY Eye Exam: Positive for: EOMI, Normal appearance, PERRL ENT: Positive for: Normal ENT Inspection Neck: Positive for: Normal, Painless ROM Cardiovascular/Chest: Positive for: Regular Rate, Rhythm Respiratory: Positive for: CNT, Normal Breath Sounds Gastrointestinal/Abdominal: Positive for: Normal Exam, Soft Back: Positive for: Normal Inspection Rectal: Positive for: Hemorrhoids (internal hemorrhoids noted extruding from anus. Small external tags noted. No thrombosis noted.) Extremity: Positive for: Normal ROM Neurologic/Psych: Positive for: Alert, Oriented - ECG O2 Sat by Pulse Oximetry: 100 Disposition - Clinical Impression Clinical Impression: Hemorrhoid - Patient ED Disposition Is Patient to be Admitted: No - Disposition Referrals: Chevy Teixeira MD [Staff Provider] - Disposition: Routine/Home Disposition Time: 23:13 Condition: FAIR Prescriptions: Docusate Sodium [Colace] 100 mg PO BID PRN #20 capsule PRN Reason: Constipation Hydrocortisone [Anusol-HC] 25 mg RC BID #14 sup Ibuprofen [Motrin] 600 mg PO Q8 PRN #21 tab PRN Reason: Pain, Moderate (4-7) Instructions: Hemorrhoids (DC), Hemorrhoids Print Language: ESTONIAN
== END 2018-07-09 23:26 | disposition home or self-care (01) ==
LOC: H.ER 21:55
DX: K64.8 Other hemorrhoids (principal)

== ENCOUNTER 2018-09-05 04:08 | Emergency (ER) | payer OTHER ==
[2018-09-05 04:09] VITALS: BMI 34.5
[2018-09-05 04:37] VITALS: RESP 18
[2018-09-05] MEDS ORDERED: Sodium Chloride 0.9% 1,000 ML IV STA (05:59)
--- NOTE | 2018-09-05 06:02 | ED PDOC ---
HPI: Abdomen Time Seen by Provider: 09/05/18 05:35 Chief Complaint (Nursing): Abdominal Pain Chief Complaint (Provider): abdominal pain Onset/Duration Of Symptoms: Days (1 week) Current Symptoms Are (Timing): Still Present Severity: Moderate Pain Scale Rating Of: 8 Location Of Pain/Discomfort: Epigastric Quality Of Discomfort: Sharp Associated Symptoms: Loss Of Appetite Exacerbating Factors: None Additional Complaint(s): PAtient is a 28 year old female who presents with epigastri and left flank pain for 1week. No V/D, constipation, urinary symptoms or fever. Past Medical History Vital Signs: Last Vital Signs Temp 98.7 F 09/05/18 04:34 Pulse 77 09/05/18 04:34 Resp 18 09/05/18 04:34 BP 119/77 09/05/18 04:34 Pulse Ox 99 09/05/18 04:34 - Medical History PMH: Kidney Stones Denies: Chronic Kidney Disease - Surgical History Surgical History: Appendectomy, (x 1) - Family History Family History: States: Unknown Family Hx - Immunization History Hx Tetanus Toxoid Vaccination: No Hx Influenza Vaccination: No Hx Pneumococcal Vaccination: No - Home Medications Home Medications: Ambulatory Orders Medication Instructions Recorded Diazepam [Valium] 2 mg PO Q12 PRN #14 tablet 01/13/17 Magnesium Oxide 500 mg PO BID #28 tablet 01/13/17 Meclizine [Meclizine*] 25 mg PO Q8 PRN #21 tab 01/13/17 Nitrofurantoin Macrocrystals 100 mg PO Q12 #14 cap 01/13/17 [Macrobid] Nitrofurantoin Macrocrystals 100 mg PO BID #14 tab 04/07/17 [Macrobid] Dicyclomine [Bentyl] 20 mg PO Q12 PRN #20 tab 04/12/17 Nitrofurantoin Macrocrystals 100 mg PO BID #14 cap 04/12/17 [Macrobid] Hydrocortisone 2.5% (Rectal) 1 applic [place] BID PRN #1 tube 07/01/17 [Anusol-HC] Naproxen [Naprosyn] 500 mg PO BID PRN #30 tab 07/01/17 DiphenhydrAMINE [Benadryl] 50 mg PO Q6H PRN #20 cap 02/21/18 predniSONE [predniSONE Tab] 20 mg PO DAILY #12 tab 07/22/17 Meloxicam [Mobic] 15 mg PO DAILY PRN #20 tab 08/14/17 diaZEpam [Valium] 5 mg PO TID PRN #10 tab 08/14/17 Naproxen [Naprosyn] 500 mg PO Q12 PRN #20 tablet 09/17/17 Amoxicillin 500 mg PO TID #21 tablet 09/19/17 Nitrofurantoin Macrocrystals 100 mg PO BID #14 cap 11/28/17 [Macrobid] Comb No.42/Folic Acid 1 tab PO DAILY #60 tab 11/28/17 [Prena1 Chew] Acetaminophen [Tylenol Extra 500 mg PO Q6 PRN #12 tablet 12/13/17 Strength] Atropine/Diphenoxylate [Lonox 1 tab PO Q8 #10 tab 05/14/18 0.025 MG-2.5 MG] Famotidine [Pepcid] 20 mg PO Q12 #20 tab 05/14/18 Ondansetron [Zofran] 4 mg PO Q8H #10 tab 05/14/18 Docusate Sodium [Colace] 100 mg PO BID PRN #20 capsule 07/09/18 Hydrocortisone [Anusol-HC] 25 mg RC BID #14 sup 07/09/18 Ibuprofen [Motrin] 600 mg PO Q8 PRN #21 tab 07/09/18 Famotidine [Pepcid] 20 mg PO BID #20 tab 09/05/18 - Allergies Allergies/Adverse Reactions: Allergies Allergy/AdvReac Type Severity Reaction Status Date / Time morphine Allergy RASH Verified 05/14/18 21:11 Review of Systems ROS Statement: Except As Marked, All Systems Reviewed And Found Negative Gastrointestinal: Positive for: Abdominal Pain Physical Exam - Reviewed Nursing Documentation Reviewed: Yes Vital Signs Reviewed: Yes - Physical Exam Appears: Positive for: Uncomfortable Head Exam: Positive for: ATRAUMATIC, NORMOCEPHALIC Skin: Positive for: Normal Color, Warm, Dry Eye Exam: Positive for: Normal appearance, EOMI, PERRL Neck: Positive for: Normal, Painless ROM, Supple Cardiovascular/Chest: Positive for: Regular Rate, Rhythm. Negative for: Murmur Respiratory: Positive for: Normal Breath Sounds. Negative for: Rales, Rhonchi, Wheezing Gastrointestinal/Abdominal: Positive for: Normal Exam, Bowel Sounds, Soft Back: Positive for: Normal Inspection Extremity: Positive for: Normal ROM. Negative for: Tenderness, Pedal Edema Neurological/Psych: Positive for: Awake, Alert, Oriented. Negative for: Motor/Sensory Deficits - Laboratory Results Result Diagrams: 09/05/18 06:12 09/05/18 06:12 - ECG O2 Sat by Pulse Oximetry: 99 Medical Decision Making Medical Decision Makin28 year old female with abdominal and left flank pain Labs, CT, Toradol Patient s/o to Dr Zelaya at 7AM Disposition - Clinical Impression Clinical Impression: Abdominal pain in female - Patient ED Disposition Is Patient to be Admitted: Transfer of Care - Disposition Disposition: Transfer of Care Disposition Time: 07:00 Condition: STABLE Prescriptions: Famotidine [Pepcid] 20 mg PO BID #20 tab Instructions: Acute Abdomen (Belly Pain) Forms: [facility] ([place] Island[place]) Print Language: SUDANESE
[2018-09-05 06:22] LABS: BASO % 0.5 % (0.0-2.0); EOS # 0.1 K/uL (0.0-0.7); EOS % 1.6 % (0.0-4.0); HEMOGLOBIN 13.6 g/dL (12.0-16.0); LYMPH # 2.5 K/uL (1.0-4.3); LYMPH % 35.2 % (20.0-40.0); MEAN CELL VOLUME 87.5 fl (81.0-99.0); MEAN CORPUSCULAR HEMOGLOBIN 29.6 pg (27.0-31.0); MEAN CORPUSCULAR HGB CONC 33.8 g/dL (33.0-37.0); MEAN PLATELET VOLUME 9.6 fl (7.2-11.7); MONO # 0.5 K/uL (0.0-0.8); MONO % 6.4 % (0.0-10.0); NEUT % 56.3 % (50.0-75.0); NRBC % 0.1 % (0.0-0.0); RBC 4.59 Mil/uL (3.80-5.20); RED CELL DISTRIBUTION WIDTH 13.9 % (11.5-14.5); WHITE BLOOD COUNT 7.1 K/uL (4.8-10.8)
[2018-09-05 06:31] LABS: ALB/GLOB RATIO 1.3 (1.0-2.1); ALBUMIN 4.5 g/dL (3.5-5.0); ALT/SGPT 30 U/L (9-52); AST/SGOT 28 U/L (14-36); BLOOD UREA NITROGEN 15 mg/dl (7-17); CALCIUM 9.6 mg/dL (8.4-10.2); GFR NON-AFRICAN AMERICAN > 60; LIPASE 80 U/L (23-300); SQUAMOUS EPITHIAL 1 /hpf (0-5); URINE BACTERIA RARE (<OCC); URINE BILIRUBIN NEGATIVE (NEGATIVE); URINE BLOOD MODERATE (NEGATIVE); URINE CLARITY CLEAR (Clear); URINE COLOR YELLOW (YELLOW); URINE GLUCOSE (UA) NEG (NEGATIVE); URINE LEUKOCYTE ESTERASE NEG Leu/uL (Negative); URINE PROTEIN NEGATIVE (NEGATIVE); URINE UROBILINOGEN 0.2-1.0 mg/dL (0.2-1.0)
--- NOTE | 2018-09-05 07:16 | ED PDOC ---
- Laboratory Results Result Diagrams: 09/05/18 06:12 09/05/18 06:12 Lab Results: Total Bilirubin 0.5 mg/dl (0.2-1.3) 09/05/18 06:12 AST 28 U/L (14-36) 09/05/18 06:12 ALT 30 U/L (9-52) 09/05/18 06:12 Alkaline Phosphatase 67 U/L (38-126) 09/05/18 06:12 Total Protein 8.0 G/DL (6.3-8.2) 09/05/18 06:12 Albumin 4.5 g/dL (3.5-5.0) 09/05/18 06:12 Globulin 3.4 gm/dL (2.2-3.9) 09/05/18 06:12 Albumin/Globulin Ratio 1.3 (1.0-2.1) 09/05/18 06:12 Lipase 80 U/L (23-300) 09/05/18 06:12 Urine Color Yellow (YELLOW) 09/05/18 06:12 Urine Clarity Clear (Clear) 09/05/18 06:12 Urine pH 6.0 (5.0-8.0) 09/05/18 06:12 Ur Specific [place] 1.018 (1.003-1.030) 09/05/18 06:12 Urine Protein Negative mg/dL (NEGATIVE) 09/05/18 06:12 Urine Glucose (UA) Neg mg/dL (NEGATIVE) 09/05/18 06:12 Urine Ketones Negative mg/dL (NEGATIVE) 09/05/18 06:12 Urine Blood Moderate (NEGATIVE) 09/05/18 06:12 Urine Nitrate Negative (NEGATIVE) 09/05/18 06:12 Urine Bilirubin Negative (NEGATIVE) 09/05/18 06:12 Urine Urobilinogen 0.2-1.0 mg/dL (0.2-1.0) 09/05/18 06:12 Ur Leukocyte Esterase Neg Jamar/uL (Negative) 09/05/18 06:12 Urine RBC (Auto) 4 /hpf (0-3) H 09/05/18 06:12 Urine Microscopic WBC 2 /hpf (0-5) 09/05/18 06:12 Ur Squamous Epith Cells 1 /hpf (0-5) 09/05/18 06:12 Urine Bacteria Rare (<OCC) 09/05/18 06:12 - ECG O2 Sat by Pulse Oximetry: 99 (RA) Pulse Ox Interpretation: Normal Medical Decision Making Medical Decision Making: Time: 0700 Patient is endorsed to provider from Lonnie Gee MD. Pending CT. Accession No. : [id number] Patient Name / ID : JAKE ALEMAN / [id number] Exam Date : 09/05/2018 08:25:45 ( Approved ) Study Comment : Sex / Age : F / 28Y Creator : Robert Parisi MD Dictator : Robert Parisi MD [employer] : Photographic Technician : Robert Parisi MD Approver2 : Report Date : 09/05/2018 09:07:46 My Comment : Date of service: 09/05/2018 PROCEDURE: CT Abdomen and Pelvis without intravenous contrast HISTORY: renal colic COMPARISON: Abdomen pelvis CT with oral contrast 08/18/2016. TECHNIQUE: Helical CT of the abdomen and pelvis was performed without oral or intravenous contrast as per referring physician request. Coronal and sagittal reformats were generated. Contrast dose: None Radiation dose: Total exam DLP = 859.74 mGy-cm. This CT exam was performed using one or more of the following dose reduction techniques: Automated exposure control, adjustment of the mA and/or kV according to patient size, and/or use of iterative reconstruction technique. FINDINGS: LOWER THORAX: Unremarkable. LIVER: Unremarkable. No gross lesion or ductal dilatation. GALLBLADDER AND BILE DUCTS: Unremarkable. PANCREAS: Unremarkable. No gross lesion or ductal dilatation. SPLEEN: Unremarkable. ADRENALS: Unremarkable. No mass. KIDNEYS AND URETERS: No radiodense urolithiasis, perinephric fluid collection or obstructive uropathy is appreciate bilaterally. The bilateral ureters appear normal caliber overall. No suspicious renal contour changes to suggest underlying mass. The lack of intravenous contrast limits evaluation of the renal parenchyma bilaterally. VASCULATURE: Unremarkable. No aortic aneurysm. No aortic atherosclerotic calcification or mural plaque present. BOWEL: Unremarkable. No obstruction. No gross mural thickening. APPENDIX: Unremarkable. Normal appendix. PERITONEUM: There is a 3.6 x 2.9 x 3.5 cm cystic lesion with solid internal component appreciated at its superolateral margins overlying the medial margins of the right common iliac artery which is increased in overall volume in the interval and with internal nodularity developing. This is a very slow growing lesion which is likely benign however follow-up MRI is recommended with without contrast for added characterization. Ultrasonography would likely not be helpful given bowel completely overlying this structure. LYMPH NODES: Unremarkable. No enlarged lymph nodes. BLADDER: Unremarkable. REPRODUCTIVE: Unremarkable. BONES: No acute fracture. OTHER FINDINGS: None. IMPRESSION: There is a 3.6 x 2.9 x 3.5 cm cystic lesion with solid internal component appreciated at its superolateral margins overlying the medial margins of the right common iliac artery which is increased in overall volume in the interval and with internal nodularity developing. This is a very slow growing lesion which is likely benign however follow-up elective Pelvis MRI is recommended with without contrast for added characterization. Ultrasonography would likely not be helpful given bowel completely overlying this structure. No radiodense urolithiasis, perinephric fluid collection or obstructive uropathy is appreciate bilaterally. The bilateral ureters appear normal caliber overall. No suspicious renal contour changes to suggest underlying mass. The lack of intravenous contrast limits evaluation of the renal parenchyma bilaterally. 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 Pt given copy of CT report. Questions answered. States she goes to Clinic in [place]. Scribe Attestation: Documented by Josué Cadet, acting as a scribe Barbra Zelaya MD. Provider Scribe Attestation: All medical record entries made by the Scribe were at my direction and personally dictated by me. I have reviewed the chart and agree that the record accurately reflects my personal performance of the history, physical exam, medical decision making, and the department course for this patient. I have also personally directed, reviewed, and agree with the discharge instructions and disposition. Disposition - Clinical Impression Clinical Impression: Abdominal pain in female - POA Present On Arrival: None - Disposition Referrals: [facility] [Outside] Disposition: Routine/Home Disposition Time: 09:38 Condition: STABLE Prescriptions: Famotidine [Pepcid] 20 mg PO BID #20 tab Instructions: Acute Abdomen (Belly Pain) Forms: [facility] (Mal[place]ian) Print Language: SINHALA
[2018-09-05 08:21] VITALS: BP 118/70; PULSE 70; TEMP 98
--- NOTE | 2018-09-05 09:12 | CT ---
Date of service: 09/05/2018 PROCEDURE: CT Abdomen and Pelvis without intravenous contrast HISTORY: renal colic COMPARISON: Abdomen pelvis CT with oral contrast 08/18/2016. TECHNIQUE: Helical CT of the abdomen and pelvis was performed without oral or intravenous contrast as per referring physician request. Coronal and sagittal reformats were generated. Contrast dose: None Radiation dose: Total exam DLP = 859.74 mGy-cm. This CT exam was performed using one or more of the following dose reduction techniques: Automated exposure control, adjustment of the mA and/or kV according to patient size, and/or use of iterative reconstruction technique. FINDINGS: LOWER THORAX: Unremarkable. LIVER: Unremarkable. No gross lesion or ductal dilatation. GALLBLADDER AND BILE DUCTS: Unremarkable. PANCREAS: Unremarkable. No gross lesion or ductal dilatation. SPLEEN: Unremarkable. ADRENALS: Unremarkable. No mass. KIDNEYS AND URETERS: No radiodense urolithiasis, perinephric fluid collection or obstructive uropathy is appreciate bilaterally. The bilateral ureters appear normal caliber overall. No suspicious renal contour changes to suggest underlying mass. The lack of intravenous contrast limits evaluation of the renal parenchyma bilaterally. VASCULATURE: Unremarkable. No aortic aneurysm. No aortic atherosclerotic calcification or mural plaque present. BOWEL: Unremarkable. No obstruction. No gross mural thickening. APPENDIX: Unremarkable. Normal appendix. PERITONEUM: There is a 3.6 x 2.9 x 3.5 cm cystic lesion with solid internal component appreciated at its superolateral margins overlying the medial margins of the right common iliac artery which is increased in overall volume in the interval and with internal nodularity developing. This is a very slow growing lesion which is likely benign however follow-up MRI is recommended with without contrast for added characterization. Ultrasonography would likely not be helpful given bowel completely overlying this structure. LYMPH NODES: Unremarkable. No enlarged lymph nodes. BLADDER: Unremarkable. REPRODUCTIVE: Unremarkable. BONES: No acute fracture. OTHER FINDINGS: None. IMPRESSION: There is a 3.6 x 2.9 x 3.5 cm cystic lesion with solid internal component appreciated at its superolateral margins overlying the medial margins of the right common iliac artery which is increased in overall volume in the interval and with internal nodularity developing. This is a very slow growing lesion which is likely benign however follow-up elective Pelvis MRI is recommended with without contrast for added characterization. Ultrasonography would likely not be helpful given bowel completely overlying this structure. No radiodense urolithiasis, perinephric fluid collection or obstructive uropathy is appreciate bilaterally. The bilateral ureters appear normal caliber overall. No suspicious renal contour changes to suggest underlying mass. The lack of intravenous contrast limits evaluation of the renal parenchyma bilaterally.
[2018-09-05 09:23] VITALS: O2SAT 99
== END 2018-09-05 09:45 | disposition home or self-care (01) ==
LOC: H.ER 04:08
DX: R10.2 Pelvic and perineal pain (principal); Z87.442 Personal history of urinary calculi
CPT/HCPCS: 74176; 80053; 81003; 81025; 83690; 85025; 99284; J1885; J7030